=== PATIENT | female | born 1995 | race Caucasian/White ===

== ENCOUNTER 2021-01-07 15:12 | Outpatient (REF) | payer BC, SELFPAY ==
--- NOTE | 2021-01-07 14:30 | PAPFT_PTH ---
PATIENT: Elmira Gonzalez LOC: [facility] U#:[id number] AGE/SX: 25/F ROOM: RE01/07/[address]: Sowmya Lawrence APRN : 1995 BED: DIS: 01/07/2021 SPEC #: [id number] RECD: 01/07/21 18:10 STATUS: MILAGRO ANDRES #: [id number] GIULIA: 01/07/21 14:[address]: Sowmya Lawrence [facility]PT: [facility] Cytology RECD BY: Kristina Stone Tissues: 1 - CX/ENDOCX FOR PAP SMEARS Procedures: PAP THIN PREP/UVM Screening Comments: [id number]
== END 2021-01-07 15:13 | disposition home or self-care (01) ==
LOC: LBN 15:12
PROVIDERS: PCP Nurse Practitioner; Visit Provider Nurse Practitioner
DX: Z12.4 Encounter for screening for malignant neoplasm of cervix (principal)
CPT/HCPCS: 88142

== ENCOUNTER 2022-06-20 17:28 | Emergency (ER) | payer BC, SELFPAY ==
[2022-06-20 17:32] VITALS: BP 155/91; PULSE 129; RESP 18; TEMP 37.1; O2SAT 97
--- NOTE | 2022-06-20 17:56 | W.ED.GENAD ---
Discharge Plan Disposition Patient Disposition: HOME Discharge Details Clinical Impression: Otitis media, Acute allergic conjunctivitis Primary Care Provider: Sowmya Lawrence ED Provider: Raffy Mccallum Home Meds and New Rx's Prescriptions: New amoxicillin-pot clavulanate [Augmentin] 500-125 mg tablet 1 tab PO Q8H Qty: 20 0RF No Action multivitamin [Daily Vitamin] 1 EACH tablet 1 ea PO DAILY Nexplanon 68 MG implant 68 mg SQ ONCE Qty: 1 0RF norgestimate-ethinyl estradiol [Estarylla] 0.25-35 mg-mcg tablet 1 tab PO DAILY Label Comments: TAKE ONE TABLET BY MOUTH EVERY DAY Discharge Instructions Instructions: Ear Infection (ED), Conjunctivitis (ED) Additional Instructions: Please take Tylenol 1 g every 6 hours for the pain. You can also take ibuprofen 600 mg every 6 hours for the pain. Please take the antibiotic as prescribed. Please follow your primary care doctor next week Please use the erythromycin ointment 3 times a day until the tube is completed Medical Decision Making Medical Records Medical records narrative: Patient with bilateral otitis media. No perforation. Bilateral conjunctivitis likely viral. Patient will be discharged with instruction to take Tylenol Motrin for the pain. She will be sent home with a Augmentin prescription. She has been using cool compresses for her eyes and this does not seem to work. She will be given some erythromycin ointment in the emergency department. HPI General Date/Time Provider Initiated Documentation: 06/20/22 17:55. HPI Narrative: 26-year-old presents to the emergency room for evaluation of bilateral red eye and eye drainage associated with bilateral ear pain. The right ear hurts more than the left. Not associated with any change in hearing acuity. Patient denies any fevers or chills. She has been taking Tylenol for the pain. Her last dose of Tylenol was this morning. The pain in her ear started on Wednesday. Hence this has been going on for 2 days. No visual changes. No sick contacts. No seasonal allergies. Has not been taking any decongestants. States that the last time he had the infection was many years ago. No nausea no vomiting The ear pain is described as an ache. Moderate to severe intensity. No relieving factors. No aggravating factors. Related Data Home Medications Medication Instructions Recorded Confirmed multivitamin (Daily Vitamin tablet) 1 ea PO DAILY 06/07/15 06/20/22 etonogestrel 68 mg subdermal 68 mg SQ ONCE #1 implant 11/16/17 06/20/22 implant (Nexplanon) amoxicillin 500 mg-potassium 1 tab PO Q8H #20 tabs 06/20/22 clavulanate 125 mg tablet (Augmentin) norgestimate 0.25 mg-ethinyl 1 tab PO DAILY 06/20/22 06/20/22 estradiol 35 mcg tablet (Estarylla) Previous Rx's Medication Instructions Recorded etonogestrel 68 mg subdermal 68 mg SQ ONCE #1 implant 11/16/17 implant (Nexplanon) amoxicillin 500 mg-potassium 1 tab PO Q8H #20 tabs 06/20/22 clavulanate 125 mg tablet (Augmentin) Allergies Allergy/AdvReac Type Severity Reaction Status Date / Time No Known Allergies Allergy Verified 06/20/22 17:36 General Stated Complaint: EarProblem RAEGAN: 4 Review of Systems Narrative: Constitutional negative for fever, chills. Negative for malaise and fatigue. HEENT please see HPI. Cardiovascular no palpitation Respiratory no cough no shortness of breath GI no nausea no vomiting no abdominal pain. negative MSK no myalgias no arthralgias Neuro mild headache otherwise negative Skin no lesions Lymph negative PFSH All Active Problems (Updated 06/20/22 @ 18:07 by Raffy Mccallum MD) Otitis media (Acute) Acute allergic conjunctivitis (Acute) Presence of subdermal contraceptive implant (Acute 01/20/21) Obesity (Chronic) Medical History (Updated 06/20/22 @ 18:07 by Raffy Mccallum MD) BMI 40.0-44.9, adult Family History Father Cancer Grandmother Cancer Social History (Updated 01/07/21 @ 14:15 by Angelica Matias RN) Smoking/Tobacco Use Status: Never Smoking risk assessment performed?: Yes Alcohol Intake: never Drug use: Never Substance use type: does not use Household members: family Housing: house Number of Children: 0 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 Sexually active: No Do you think of yourself as: straight/heterosexual Current gender identity: female What is your relationship status?: never How often do you talk on the phone with friends or family?: never How often do you get together with friends or relatives?: never How often do you attend rastafari or catholic services?: decline to answer Do you belong to any clubs or organized social groups?: decline to answer Panel score (0-1 are the most socially isolated patients): 0 What type of physical activity do you participate in: walking Duration: 30-45 minutes/day Frequency: 5-6 times per week Special barry needs: No Seatbelt use: always Do you feel safe at home: Yes Do you feel safe in your relationship?: Yes Female Reproductive History Menstrual control method: implanted History History 0 Para Hx # Term Pregnancies Multiple births Hx # Pregnancies Ectopic pregnancies AB induced Hx Number of Living Children AB spontaneous Exam Narrative Exam Narrative: Awake alert [place] x3 mild distress. Pleasant cooperative. High BMI. No cephalic atraumatic PERRLA EOMI, bilateral injected eyes. Oropharynx normal. No cervical lymphadenopathy. Bilateral TMs with erythema and loss of anatomic landmarks. Right greater than left. Ears and tympanic canals normal Chest is clear to auscultation bilaterally. Heart is regular rate. Skin negative no rashes Neuro grossly intact Course Vital Signs Vital signs: Vital Signs Temperature 37.1 C 06/20/22 17:32 Pulse 129 H 06/20/22 17:32 Respiratory Rate 18 06/20/22 17:32 Blood Pressure 155/91 H 06/20/22 17:32 Pulse Oximetry 97 06/20/22 17:32 Temperature 37.1 C 06/20/22 17:32 Temperature Source Temporal Artery Scan 06/20/22 17:32 Pulse 129 H 06/20/22 17:32 Respiratory Rate 18 06/20/22 17:32 Respiratory Effort 06/20/22 17:36 Blood Pressure 155/91 H 06/20/22 17:32 Blood Pressure Position Sitting 06/20/22 17:32 Pulse Oximetry 97 06/20/22 17:32 Oxygen Delivery Method Room Air 06/20/22 17:32 Oxygen Flow Rate 0 06/20/22 17:32 Pain Level 7 06/20/22 17:32
[2022-06-20] MEDS: Ibuprofen 600 MG TAB PO (18:17)
[2022-06-20] MEDS: Erythromycin Ophth Oint 3.5 GM TUBE OU (18:17)
[2022-06-20] MEDS: Amoxicillin 875/Clav. 125 TAB PO (18:17)
--- NOTE | 2022-06-21 09:34 | NUR.NOTE ---
Nursing Note:Pt called to get Script changed from [facility] to [facility] because [facility] isn't open today. Verified change with provider and called to new pharmacy.
== END 2022-06-20 18:27 | disposition home or self-care (01) ==
PROVIDERS: Emergency Provider Emergency Medicine; PCP Nurse Practitioner
DX: H10.13 Acute atopic conjunctivitis, bilateral (principal); H66.93 Otitis media, unspecified, bilateral
CPT/HCPCS: 99283; 99284

== ENCOUNTER 2022-11-19 18:50 | Emergency (ER) | payer BC, SELFPAY ==
[2022-11-19 19:18] VITALS: BP 139/94; PULSE 96; RESP 16; TEMP 36.8; O2SAT 98
[2022-11-19 20:16] LABS: Abs Immature Grans 0.02 10^3/uL (0.0-0.06); Absolute Basophil Count 0.05 10^3/uL (0.0-0.2); Absolute Eosinophil Count 0.08 10^3/uL (0.0-0.7); Absolute Lymphocyte Count 2.16 10^3/uL (1.2-3.4); Absolute Monocyte Count 0.64 10^3/uL (0.1-0.8); Absolute Neutrophil Count 5.84 10^3/uL (1.2-6.7); Basophils % 0.6; Eosinophils % 0.9; HCT 47.4 % (36.0-46.0); HGB 15.9 g/dL (11.2-15.7); Immature Grans % 0.2; Lymphocytes % 24.6; MCH 28.9 pg (27.0-33.0); MCHC 33.5 % (32.0-36.0); MCV 86 fL (80-95); MPV 11.3 fL (8.0-11.0); Monocytes % 7.3; Neutrophils % 66.4; Platelet Count 193 10^3/uL (130-400); RBC 5.51 10^6/uL (3.93-5.22); RDW-SD 40.6 fL; WBC 8.79 10^3/uL (4.4-10.8)
[2022-11-19 20:19] LABS: Bilirubin Small (Negative); Blood Negative (Negative); Clarity Clear (Clear); Glucose Negative (Negative); Ketones 40 mg/dL (Negative); Leukocyte Esterase Negative (Negative); Nitrite Negative (Negative); Specific Gravity >= 1.030 (1.005-1.025); Urobilinogen 0.2 EU/dL (Up TO 0.2)
[2022-11-19 20:25] LABS: Bacteria Moderate HPF (Negative); C & S Indicated? Yes; Crystals Negative HPF (Negative); Epithelial Cells Moderate HPF (Negative); Mucus Moderate (Negative); RBC 0-2 HPF (0-2)
--- NOTE | 2022-11-19 20:30 | RT.EKG_ITS ---
APPROVED REPORT Exam: Resting ECG Reason for Exam: Hypokalemia Patient Location: E HR:84 bpm ECG Measurements Heart Rate 84 AXIS CO 164 P 35 QRSd 103 QRS 48 QT 394 T 14 QTc 466 Conclusion Sinus rhythm...normal P axis, V-rate 60- 99. Sinus. Normal axis. No STEMI. I have reviewed and interpreted ECG and agree with software generated interpretation.
[2022-11-19 20:31] LABS: ALT 24 U/L (14-59); AST 29 U/L (15-37); Albumin 4.2 g/dL (3.4-5.0); Alkaline Phosphatase 101 U/L (46-116); Anion Gap 12.4 mmol/L (3-11); BUN 13 mg/dL (7-18); Bilirubin, Total 0.9 mg/dL (0.2-1.0); CO2 23.6 mmol/L (21.0-32.0); CREATININE 0.8 mg/dL (0.55-1.02); Calcium 8.8 mg/dL (8.5-10.1); Chloride 101 mmol/L (98-107); Glucose 80 mg/dL (74-106); Lipase 92 U/L (73-393); Potassium 2.8 mmol/L (3.5-5.1); Sodium 137 mmol/L (136-145); Total Protein 8.6 g/dL (6.4-8.2)
--- NOTE | 2022-11-19 20:35 | ED.GENADUL_ITS ---
Discharge Plan Disposition Patient Disposition: Home Condition: Stable Discharge Details Clinical Impression: Abdominal pain, Hypokalemia Primary Care Provider: Sowmya Lawrence ED Provider: Marcos Barrera Home Meds and New Rx's Prescriptions: Continued multivitamin [Daily Vitamin] 1 EACH tablet 1 ea PO DAILY Nexplanon 68 MG implant 68 mg SQ ONCE Qty: 1 0RF norgestimate-ethinyl estradiol [Estarylla] 0.25-35 mg-mcg tablet 1 tab PO DAILY Label Comments: TAKE ONE TABLET BY MOUTH EVERY DAY Discharge Instructions Instructions: Abdominal Pain (ED), Hypokalemia (ED) Additional Instructions: Clear liquid diet, advance as tolerated. Zofran as directed for nausea. Please watch for new or worsening symptoms and return immediately to the ER. Otherwise I am setting you up for an ultrasound tomorrow, the radiology department should be in touch with you to set this up. After the ultrasound you will return to the ER for ultrasound results and reevaluation. As we discussed if your symptoms worsen, CT imaging may be indicated. Medical Decision Making 26-year-old female denies significant past medical history, does report positive GI sick contacts recently, presents for what she thought was a GI bug over the past 4 days, fever 4 days ago, has resolved. She reports nausea and diarrhea associated some abdominal pain. Patient denies any pain at this very moment. Reports her nausea is a 3 out of 10. Clinically she appears well, nontoxic, has no right lower quadrant pain whatsoever. Plan to obtain IV access, give IV fluid, Zofran, obtain routine screening laboratory values and reassess. Laboratory values do not reveal any evidence of leukocytosis or elevated LFTs. Incidentally potassium is 2.8. Likely secondary to her overall decrease of p.o. intake over the past 4 days. Will obtain EKG and provide p.o. and IV potassium. Given her abdominal examination, benign laboratory values, I do not see any indication for emergent CT imaging. Discussed signs and symptoms of appendicitis and we discussed the importance of returning to the ER immediately for reevaluation. Otherwise I will set her up for an outpatient ultrasound tomorrow of her gallbladder. She was able to tolerate p.o. intake here in the ER without any difficulty and reports that her nausea resolved with Zofran. We will provide a take-home pack of Zofran. Standard discharge and return precautions were provided. Patient understands, is agreeable to this plan, and has no additional questions or concerns upon discharge. This documentation was generated using [employer] dictation system, please disregard any oddities of phrase or misspellings. Medical Records Medical records reviewed: Yes I reviewed the patient's medical records. Lab Data Lab results reviewed: Yes I reviewed the patient's lab results. Labs: 11/19/22 20:00 Urine - Reflex from Ua Urine Culture - Pending Laboratory Tests Range/Units 11/19/22 11/19/22 11/19/22 20:00 20:08 20:08 WBC (4.4-10.8) 10^3/uL 8.79 RBC (3.93-5.22) 10^6/uL 5.51 H Hgb (11.2-15.7) g/dL 15.9 H Hct (36.0-46.0) % 47.4 H MCV (80-95) fL 86 MCH (27.0-33.0) pg 28.9 MCHC (32.0-36.0) % 33.5 RDW (11.7-14.6) % 13.0 Plt Count (130-400) 10^3/uL 193 MPV (8.0-11.0) fL 11.3 H Immature Gran % 0.2 Neutrophils % 66.4 Lymphocytes % 24.6 Monocytes % 7.3 Eosinophils % 0.9 Basophils % 0.6 Nucleated RBC % (0.0-0.3) % 0.0 Absolute Neutrophils (1.2-6.7) 10^3/uL 5.84 Absolute Lymphocytes (1.2-3.4) 10^3/uL 2.16 Absolute Monocytes (0.1-0.8) 10^3/uL 0.64 Absolute Eosinophils (0.0-0.7) 10^3/uL 0.08 Absolute Basophils (0.0-0.2) 10^3/uL 0.05 Sodium (136-145) mmol/L 137 Potassium (3.5-5.1) mmol/L 2.8 L* Chloride (98-107) mmol/L 101 Carbon Dioxide (21.0-32.0) mmol/L 23.6 Anion Gap (3-11) mmol/L 12.4 H BUN (7-18) mg/dL 13 Creatinine (0.55-1.02) mg/dL 0.8 Est GFR (CKD-EPI 2020) (mL/min/1.73m2) 103.50 Glucose (74-106) mg/dL 80 Calcium (8.5-10.1) mg/dL 8.8 Total Bilirubin (0.2-1.0) mg/dL 0.9 AST (15-37) U/L 29 ALT (14-59) U/L 24 Alkaline Phosphatase (46-116) U/L 101 Total Protein (6.4-8.2) g/dL 8.6 H Albumin (3.4-5.0) g/dL 4.2 Lipase (73-393) U/L 92 Urine Color (Yellow) Yellow Urine Clarity (Clear) Clear Urine pH (5-8) 6.0 Ur Specific [place] (1.005-1.025) >= 1.030 H Urine Protein (Negative) mg/dL Trace H Urine Ketones (Negative) mg/dL 40 H Urine Blood (Negative) Negative Urine Nitrite (Negative) Negative Urine Bilirubin (Negative) Small H Urine Urobilinogen (Up TO 0.2) EU/dL 0.2 Ur Leukocyte Esterase (Negative) Negative Urine RBC (0-2) HPF 0-2 Urine WBC (0-5) HPF 3-5 Ur Epithelial Cells (Negative) HPF Moderate Urine Crystals (Negative) HPF Negative Urine Bacteria (Negative) HPF Moderate Urine Mucus (Negative) Moderate Ur Culture Indicated? Yes Urine Glucose (Negative) mg/dL Negative ECG Data Attestation: I personally reviewed and interpreted this ECG (s) as follows: Interpretation: Sinus rhythm, ventricular of 84, no STEMI, no signs of hypokalemia HPI General Mode of arrival: ambulatory . Date/Time Provider Initiated Documentation: 11/19/22 19:25 . Limitations to Documentation: no limitations . Information obtained by: patient . HPI Narrative: This is a 26-year-old female, past medical history of obesity, presents to the ER today for what she described as a stomach bug that began 4 days ago associated with some nausea, reports fever 4 days ago of 100.0, mild diarrhea that is improving with Pepto-Bismol, and some abdominal discomfort. Patient states overall she feels like her symptoms are improving and she went to work today. At work today she felt like she overdid it, felt like her nausea got worse, and her coworkers recommended going to urgent care for nausea medication. At urgent care they sent her to the ER for further evaluation of potential cholecystitis and or appendicitis. She denies recent trauma, chest pain, shortness of breath, vaginal bleeding or discharge, dysuria, hematuria, blood in her stool. Patient denies previous abdominal surgeries. Related Data Home Medications Medication Instructions Recorded Confirmed multivitamin (Daily Vitamin tablet) 1 ea PO DAILY 06/07/15 11/19/22 etonogestrel 68 mg subdermal 68 mg SQ ONCE #1 implant 11/16/17 11/19/22 implant (Nexplanon) norgestimate 0.25 mg-ethinyl 1 tab PO DAILY 06/20/22 11/19/22 estradiol 35 mcg tablet (Estarylla) Previous Rx's Medication Instructions Recorded etonogestrel 68 mg subdermal 68 mg SQ ONCE #1 implant 11/16/17 implant (Nexplanon) Allergies Allergy/AdvReac Type Severity Reaction Status Date / Time No Known Allergies Allergy Verified 11/19/22 19:24 General Stated Complaint: Abd Prob RAEGAN: 3 Review of Systems Constitutional Constitutional: Reports fever(s) (4 days ago) ENT Ears, Nose, Mouth, and Throat: Denies sore throat Cardiovascular Cardiovascular: Denies chest pain and Denies dyspnea Respiratory Respiratory: Denies cough and Denies dyspnea Gastrointestinal Gastrointestinal: Reports abdominal pain, Denies hematochezia, Denies constipation, Reports diarrhea, Denies nausea and Reports vomiting Genitourinary Genitourinary: Denies dysuria and Denies vaginal discharge Musculoskeletal Musculoskeletal: Denies back pain Integumentary/Breasts Skin/Breast: Denies rash PFSH All Active Problems (Updated 11/19/22 @ 22:01 by LAMINE Angulo) Abdominal pain (Acute) Hypokalemia (Acute) Presence of subdermal contraceptive implant (Acute 01/20/21) Obesity (Chronic) Medical History BMI 40.0-44.9, adult Family History Father Cancer Grandmother Cancer Social History Smoking/Tobacco Use Status: Never Smoking risk assessment performed?: Yes Alcohol Intake: never Drug use: Never Substance use type: does not use Household members: family Housing: house Number of Children: 0 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 Sexually active: No Do you think of yourself as: straight/heterosexual Current gender identity: female What is your relationship status?: never How often do you talk on the phone with friends or family?: never How often do you get together with friends or relatives?: never How often do you attend anglican or taoism services?: decline to answer Do you belong to any clubs or organized social groups?: decline to answer Panel score (0-1 are the most socially isolated patients): 0 What type of physical activity do you participate in: walking Duration: 30-45 minutes/day Frequency: 5-6 times per week Special barry needs: No Seatbelt use: always Do you feel safe at home: Yes Do you feel safe in your relationship?: Yes Female Reproductive History Menstrual control method: implanted History History 0 Para Hx # Term Pregnancies Multiple births Hx # Pregnancies Ectopic pregnancies AB induced Hx Number of Living Children AB spontaneous Exam Const General: cooperative, healthy appearing, comfortable and no acute distress Orientation: alert and awake HENMT Head: normal to inspection, normocephalic and atraumatic Face and sinus: normal facial exam Mouth: moist mucous membranes Eyes Conjunctivae: conjunctivae normal Neck Neck: normal visual inspection, full ROM, no meningeal signs, trachea midline and supple Resp Effort & Inspection: normal respiratory effort and able to speak in complete sentences Auscultation: clear to auscultation bilaterally Cardio Rate: regular rate Rhythm: regular rhythm GI Inspection: obesity Palpation: soft, not firm, no guarding and tender in the epigastrum and in the RUQ; not at McBurney's point and Lowe's sign negative Auscultation: normal bowel sounds Back/Spine/Pelvis Back: no CVA tenderness and No back tenderness Skin General skin exam: no rashes or lesions noted Neuro General: patient alert, patient awake, moves all extremities and no focal motor deficits Sensory Exam: no sensory deficits noted Psych Appearance: grossly normal Mental Status: mental status grossly normal Course Vital Signs Vital signs: Vital Signs Temperature 36.8 C 11/19/22 19:18 Pulse 96 H 11/19/22 19:18 Respiratory Rate 16 11/19/22 19:18 Blood Pressure 139/94 H 11/19/22 19:18 Pulse Oximetry 98 11/19/22 19:18 Temperature 36.8 C 11/19/22 19:18 Temperature Source Temporal Artery Scan 11/19/22 19:18 Pulse 96 H 11/19/22 19:18 Respiratory Rate 16 11/19/22 19:18 Respiratory Effort 11/19/22 19:18 Blood Pressure 139/94 H 11/19/22 19:18 Blood Pressure Position Sitting 11/19/22 19:18 Pulse Oximetry 98 11/19/22 19:18 Oxygen Delivery Method Room Air 11/19/22 19:18 Oxygen Flow Rate 0 11/19/22 19:18 Pain Level 5 11/19/22 20:15 Lab/Test Results Lab/Test Results: 11/19/22 20:00 Urine - Reflex from Ua Urine Culture - Pending Laboratory Tests Range/Units 11/19/22 11/19/22 11/19/22 20:00 20:08 20:08 WBC (4.4-10.8) 10^3/uL 8.79 RBC (3.93-5.22) 10^6/uL 5.51 H Hgb (11.2-15.7) g/dL 15.9 H Hct (36.0-46.0) % 47.4 H MCV (80-95) fL 86 MCH (27.0-33.0) pg 28.9 MCHC (32.0-36.0) % 33.5 RDW (11.7-14.6) % 13.0 Plt Count (130-400) 10^3/uL 193 MPV (8.0-11.0) fL 11.3 H Immature Gran % 0.2 Neutrophils % 66.4 Lymphocytes % 24.6 Monocytes % 7.3 Eosinophils % 0.9 Basophils % 0.6 Nucleated RBC % (0.0-0.3) % 0.0 Absolute Neutrophils (1.2-6.7) 10^3/uL 5.84 Absolute Lymphocytes (1.2-3.4) 10^3/uL 2.16 Absolute Monocytes (0.1-0.8) 10^3/uL 0.64 Absolute Eosinophils (0.0-0.7) 10^3/uL 0.08 Absolute Basophils (0.0-0.2) 10^3/uL 0.05 Sodium (136-145) mmol/L 137 Potassium (3.5-5.1) mmol/L 2.8 L* Chloride (98-107) mmol/L 101 Carbon Dioxide (21.0-32.0) mmol/L 23.6 Anion Gap (3-11) mmol/L 12.4 H BUN (7-18) mg/dL 13 Creatinine (0.55-1.02) mg/dL 0.8 Est GFR (CKD-EPI 2020) (mL/min/1.73m2) 103.50 Glucose (74-106) mg/dL 80 Calcium (8.5-10.1) mg/dL 8.8 Total Bilirubin (0.2-1.0) mg/dL 0.9 AST (15-37) U/L 29 ALT (14-59) U/L 24 Alkaline Phosphatase (46-116) U/L 101 Total Protein (6.4-8.2) g/dL 8.6 H Albumin (3.4-5.0) g/dL 4.2 Lipase (73-393) U/L 92 Urine Color (Yellow) Yellow Urine Clarity (Clear) Clear Urine pH (5-8) 6.0 Ur Specific [place] (1.005-1.025) >= 1.030 H Urine Protein (Negative) mg/dL Trace H Urine Ketones (Negative) mg/dL 40 H Urine Blood (Negative) Negative Urine Nitrite (Negative) Negative Urine Bilirubin (Negative) Small H Urine Urobilinogen (Up TO 0.2) EU/dL 0.2 Ur Leukocyte Esterase (Negative) Negative Urine RBC (0-2) HPF 0-2 Urine WBC (0-5) HPF 3-5 Ur Epithelial Cells (Negative) HPF Moderate Urine Crystals (Negative) HPF Negative Urine Bacteria (Negative) HPF Moderate Urine Mucus (Negative) Moderate Ur Culture Indicated? Yes Urine Glucose (Negative) mg/dL Negative
[2022-11-19] MEDS: Potassium Chloride 20 MEQ TABCR 40 MEQ PO (21:08)
[2022-11-19] MEDS: Ondansetron 4 MG/2 ML VIAL IVP (21:11)
[2022-11-19] MEDS: POTASSIUM CHLORIDE 10 MEQ/100 ML BAG 100 MEQ IVPB (21:12)
[2022-11-19 21:32] VITALS: BP 137/89; PULSE 90; RESP 16; O2SAT 97
--- NOTE | 2022-11-19 21:37 | NUR.NOTE ---
Ultrasound requisition faxed to [facility], patient given abd ultrasound instruction sheet. Will f/u in ED.Nursing Note:
--- NOTE | 2022-11-19 21:39 | NUR.NOTE ---
Referral faxed to [facility] General Surgery to f/u within a week for ascites.Nursing Note:
--- NOTE | 2022-11-19 22:08 | NUR.NOTE ---
Report given to Rhiannon GARRISON Nursing Note:
[2022-11-19 22:39] VITALS: BP 124/94; PULSE 95; RESP 18; TEMP 36.8; O2SAT 99
[2022-11-19 22:50] VITALS: BP 124/94; PULSE 95; RESP 18; TEMP 36.8; O2SAT 99
[2022-11-19] MEDS: Ondansetron O.D.T. 4 MG TABEF, 3 TABS/BTL PO (23:00)
== END 2022-11-19 22:45 | disposition home or self-care (01) ==
PROVIDERS: Emergency Provider Physician Assistant; PCP Nurse Practitioner
DX: E87.6 Hypokalemia (principal); R10.9 Unspecified abdominal pain; R19.7 Diarrhea, unspecified; R10.11 Right upper quadrant pain
CPT/HCPCS: 36415; 80053; 83690; 93005; 96365; 96375; 99284; 81003; 81015; 85025; 87086; 93010; J2405; J3480

== ENCOUNTER 2022-11-20 11:25 | Emergency (ER) | payer BC, SELFPAY ==
[2022-11-20 11:33] VITALS: BP 127/87; PULSE 99; RESP 18; TEMP 36.6; O2SAT 98
--- NOTE | 2022-11-20 11:38 | ED.GENADUL_ITS ---
Discharge Plan Disposition Patient Disposition: Home Condition: Stable Discharge Details Clinical Impression: Cholelithiasis Primary Care Provider: Sowmya Lawrence ED Provider: Marcos Barrera Home Meds and New Rx's Prescriptions: New ondansetron 4 mg tablet,disintegrating 4 mg PO TID PRNQty: 10 0RF Continued multivitamin [Daily Vitamin] 1 EACH tablet 1 ea PO DAILY Nexplanon 68 MG implant 68 mg SQ ONCE Qty: 1 0RF norgestimate-ethinyl estradiol [Estarylla] 0.25-35 mg-mcg tablet 1 tab PO DAILY Label Comments: TAKE ONE TABLET BY MOUTH EVERY DAY Discharge Instructions Instructions: Biliary Colic (ED), Gallstones (ED) Additional Instructions: Avoid fatty, greasy, fried foods. Zofran as directed for nausea. Please watch for new or worsening symptoms and return to the ER for any concerns. Lastly, I have provided you a referral to our [facility], please contact their office later today to discuss your ER visit and need for outpatient reevaluation. Referrals: Jeremy Nascimento MD [ [facility] STAFF PHYSICIAN] - Medical Decision Making 26-year-old female was seen in the ER last night for 4-day history of abdominal pain, nausea, diarrhea which is overall improving, seen at the urgent care and sent to the ER for further evaluation. CBC, CMP, lipase all unremarkable. No indication for emergent CT imaging. Set up for outpatient ultrasound today. Patient reports no pain whatsoever. Reports her nausea has improved with Zofran. Denies fever. Reports she was able to eat breakfast today without difficulty. Ultrasound reveals cholelithiasis without evidence of acute cholecystitis. Abdomen is soft, nontender, examination not consistent with surgical abdomen. Extremely low suspicion for acute appendicitis, I do not see any clear indication to obtain CT imaging or repeat laboratory values at this time. We will provide prescription for Zofran and give referral to surgical Associates. We had a long discussion regarding cholelithiasis, dietary changes, signs and symptoms to watch for and return immediately to the ER. Standard discharge and return precautions were provided. Patient understands, is agreeable to this plan, and has no additional questions or concerns upon discharge. This documentation was generated using Spontaneouslyation system, please disregard any oddities of phrase or misspellings. Medical Records Medical records reviewed: Yes I reviewed the patient's medical records. Imaging Data Radiologic Study: Attestation: I personally reviewed and interpreted this imaging study as follows: Imaging: Ultrasound Radiologist's impression: Exam(s) US ABDOMEN LIMITED EXAM: US ABDOMEN LIMITED CLINICAL HISTORY: PAIN TECHNIQUE: Ultrasound abdomen performed using standard protocol. COMPARISON: No exams were available for comparison FINDINGS: LIVER: Normal size and echogenicity. No focal liver lesions are seen.. GALLBLADDER: Mobile cholelithiasis. No evidence of wall thickening. No pericholecystic fluid identified. PENA'S SIGN: Negative. BILIARY SYSTEM: No intrahepatic or extrahepatic biliary ductal dilation. KIDNEYS: Kidneys are symmetric in size. No evidence of renal calculi. No evidence of hydronephrosis. No renal mass or cyst identified. PANCREAS: Normal where visualized. SPLEEN: Not enlarged. ABDOMINAL AORTA AND IVC: Visualized portions normal caliber. ASCITES: None seen. IMPRESSION: Cholelithiasis. No evidence of acute cholecystitis or biliary dilatation. HPI General Mode of arrival: ambulatory . Date/Time Provider Initiated Documentation: 11/20/22 11:38 . Limitations to Documentation: no limitations . Information obtained by: patient . HPI Narrative: 26-year-old female seen in the ER last night for evaluation of abdominal pain, laboratory values were unremarkable, set for an outpatient ultrasound of her upper quadrant today, presents now for the results. Patient was personally evaluated by me yesterday as well as today. She reports that her nausea is improving with Zofran and she denies any pain whatsoever. Denies fever, chest pain, shortness of breath, back pain, change in bowel or bladder habits. She reports overall feeling improvement when compared to yesterday. Related Data Home Medications Medication Instructions Recorded Confirmed multivitamin (Daily Vitamin tablet) 1 ea PO DAILY 06/07/15 11/20/22 etonogestrel 68 mg subdermal 68 mg SQ ONCE #1 implant 11/16/17 11/20/22 implant (Nexplanon) norgestimate 0.25 mg-ethinyl 1 tab PO DAILY 06/20/22 11/20/22 estradiol 35 mcg tablet (Estarylla) ondansetron 4 mg disintegrating 4 mg PO TID PRN #10 tabs 11/20/22 tablet Previous Rx's Medication Instructions Recorded etonogestrel 68 mg subdermal 68 mg SQ ONCE #1 implant 11/16/17 implant (Nexplanon) ondansetron 4 mg disintegrating 4 mg PO TID PRN #10 tabs 11/20/22 tablet Allergies Allergy/AdvReac Type Severity Reaction Status Date / Time No Known Allergies Allergy Verified 11/19/22 19:24 General Stated Complaint: Recheck RAEGAN: 5 Review of Systems Constitutional Constitutional: Denies fever(s) Cardiovascular Cardiovascular: Denies chest pain and Denies dyspnea Respiratory Respiratory: Denies cough and Denies dyspnea Gastrointestinal Gastrointestinal: Denies abdominal pain, Reports nausea and Denies vomiting Musculoskeletal Musculoskeletal: Denies back pain PFSH All Active Problems Abdominal pain (Acute) Hypokalemia (Acute) Cholelithiasis (Acute) Presence of subdermal contraceptive implant (Acute 01/20/21) Obesity (Chronic) Medical History BMI 40.0-44.9, adult Family History Father Cancer Grandmother Cancer Social History Smoking/Tobacco Use Status: Never Smoking risk assessment performed?: Yes Alcohol Intake: never Drug use: Never Substance use type: does not use Household members: family Housing: house Number of Children: 0 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 Sexually active: No Do you think of yourself as: straight/heterosexual Current gender identity: female What is your relationship status?: never How often do you talk on the phone with friends or family?: never How often do you get together with friends or relatives?: never How often do you attend muslim or denominational services?: decline to answer Do you belong to any clubs or organized social groups?: decline to answer Panel score (0-1 are the most socially isolated patients): 0 What type of physical activity do you participate in: walking Duration: 30-45 minutes/day Frequency: 5-6 times per week Special barry needs: No Seatbelt use: always Do you feel safe at home: Yes Do you feel safe in your relationship?: Yes Female Reproductive History Menstrual control method: implanted History History 0 Para Hx # Term Pregnancies Multiple births Hx # Pregnancies Ectopic pregnancies AB induced Hx Number of Living Children AB spontaneous Exam Const General: cooperative, healthy appearing, comfortable and no acute distress Orientation: alert and awake HENMT Head: normal to inspection, normocephalic and atraumatic Eyes Conjunctivae: conjunctivae normal Neck Neck: normal visual inspection, full ROM, no meningeal signs, trachea midline and supple Resp Effort & Inspection: normal respiratory effort and able to speak in complete sentences Auscultation: clear to auscultation bilaterally Cardio Rate: regular rate Rhythm: regular rhythm GI Inspection: obesity Palpation: soft, not firm, no guarding, no pulsatile masses and nontender Auscultation: normal bowel sounds Skin General skin exam: no rashes or lesions noted Neuro General: patient alert, patient awake, moves all extremities and no focal motor deficits Cognition: normal cognition Speech: speech normal Gait: normal gait Sensory Exam: no sensory deficits noted Psych Appearance: grossly normal Mental Status: mental status grossly normal Course Vital Signs Vital signs: Vital Signs Temperature 36.6 C 11/20/22 11:33 Pulse 99 H 11/20/22 11:33 Respiratory Rate 18 11/20/22 11:33 Blood Pressure 127/87 11/20/22 11:33 Pulse Oximetry 98 11/20/22 11:33 Temperature 36.6 C 11/20/22 11:33 Temperature Source Skin 11/20/22 11:33 Pulse 99 H 11/20/22 11:33 Respiratory Rate 18 11/20/22 11:33 Respiratory Effort 11/20/22 11:37 Blood Pressure 127/87 11/20/22 11:33 Blood Pressure Position Sitting 11/20/22 11:33 Pulse Oximetry 98 11/20/22 11:33 Oxygen Delivery Method Room Air 11/20/22 11:33 Oxygen Flow Rate 0 11/20/22 11:33 Pain Level 0 11/20/22 11:33
== END 2022-11-20 12:29 | disposition home or self-care (01) ==
PROVIDERS: Emergency Provider Physician Assistant; PCP Nurse Practitioner
DX: K80.80 Other cholelithiasis without obstruction (principal)
CPT/HCPCS: 99281; 99283

== ENCOUNTER 2022-12-02 08:07 | Day surgery (SDC) | payer BC, SELFPAY ==
--- NOTE | 2022-12-01 20:50 | W.PM.DSUDISC ---
Date of service: 12/02/22 Time of Service: 13:38 Discharge Plan Disposition Patient Disposition: Home Condition: Stable Discharge Details Reason For Visit: Laparoscopic cholecystectomy Attending Provider: Ludwin Romero Primary Care Provider: Sowmya Lawrence Home Meds and New Rx's Prescriptions: New oxycodone 5 mg capsule 5 mg PO Q8H PRNQty: 8 0RF Rx Instructions: Take 1 pill every 6-8 hours as needed for pain Continued potassium gluconate 500 mg (83 mg) tablet 500 mg PO DAILY ondansetron 4 mg tablet,disintegrating 4 mg PO TID PRN (Reason: nausea and vomiting) Qty: 20 3RF multivitamin [Daily Vitamin] 1 EACH tablet 1 ea PO DAILY Nexplanon 68 MG implant 68 mg SQ ONCE Qty: 1 0RF Discharge Instructions Instructions: Laparoscopic Cholecystectomy (DC) Additional Instructions: Alternate taking acetaminophen and ibuprofen every 4 hours for the first three days, and then taper off. Follow directions on bottle for maximum dosing. Activity:: Activity as Tolerated Remove Dressings/Wound Care:: 48 hours Shower/Bathe:: 24 hours Diet:: Low fat Discharge Orders Discharge Orders: Discharge Order (Routine); Ordered 12/02/22 Ordered By: Ludwin Romero DS: Diagnosis Discharge Diagnosis (1) Cholelithiasis: Status: Acute Asessment and Plan: 26yo female s/p laparoscopic cholecystectomy in stable condition. --discharge home when meets criteria --no lifting >10-15 pounds for 6 weeks
--- NOTE | 2022-12-01 20:55 | W.PM.OP ---
Date of service: 12/02/22 Time of Service: 13:25 Operative Note Operative Note DATE OF PROCEDURE: 12/02/22 PRE-OP DIAGNOSIS: Cholelithiasis POST-OP DIAGNOSIS: same PROCEDURE: Laparoscopic cholecystectomy SURGEON: Ludwin Romero RESEARCH AND EVALUATION MANAGER: Naima Ashraf ANESTHESIA TYPE: General LMA/ETT Refer to Anesthesia Record ESTIMATED BLOOD LOSS: 10 PATHOLOGY: other (gallbladder) COMPLICATIONS: None Patient was transported to: PACU Patient's condition: stable Indications: Cholelithiasis Findings: Mildly inflamed gallbladder Procedure Description: The patient was seen and identified by name and birthdate in the preoperative holding area. She was brought into the operating room and positioned supine on the operating room table. Sequential compression devices were applied to the lower extremities. General anesthesia was induced and the patient was intubated. A time out was called and participated in by the entire OR staff. We reviewed that antibiotics had been given within an hour of the patient coming to the operating room. Once we were in agreement, we proceeded. The patient was prepped and draped in standard fashion. The skin and subcutaneous tissues in the supraumbilical position were infiltrated with local anesthetic. The skin was divided and we attempted to gain access to the peritoneal cavity using Pilar technique.. However, it was difficult to safely elevate the peritoneum for entry. Instead, access was gained by using a 5mm camera within an Optiview trocar at the subcostal left mid-axillary line at Caraballo's point. The skin was infiltrated with anesthetic, divided, and elevated. Each abdominal wall layer was visible on entering the abdomen, and pneumoperitoneum was established. The 12mm trocar was safely placed in the supraumbiliical position under direct vision. We then placed our supxiphoid and two right subcostal 5mm trocars. The patient was positioned in reverse Trendelenburg with right side up. The gallbladder was easily visible. Mild omental adhesions were taken down. The gallbladder was elevated cephalad towards the right shoulder. The infindibulum was retracted inferiorly and laterally, and the peritoneum was opened over Calot's triangle using blunt dissection with a [place] dissector, and judicious hook cautery. The cystic duct was clearly visualized going into the gallbladder. A separate structure within Calot's triangle was thought to be the cystic artery. The cystic duct was clipped with 3 clips down and 1 up, and was divided. Upon dividing the duct, we realized that it appeared that an artery was adherent posteriorly to the duct, as a vascular lumen was seen. We continued the dissection and another vessel was found with Calot's triangle and was stapled with 2 down and 1 up, staying close to the gallbladder.. With the duct and artery divided, staying close to the gallbladder, the peritoneum overlying the gallbladder was opened laterally and medially. During manipulation a small rent was made and some bile, but no stones, were spilled. The gallbladder was divided off the liver bed, and placed in an EndoCatch bag. Hemostasis was achieved with cautery. The area was irrigated and aspirated, and no active bleeding was seen. The patient was returned to neutral position. Once again, hemostasis was assured. The 5mm trocars were removed under direct vision ensuring no bleeding, and evacuating the pneumoperitoneum. The 12mm trocar and gallbladder within the EndoCatch were removed from the field. All incisions were irrigated, and infiltrated with the remaining local anesthetic. The fascia of the 12mm access site was closed with a Vicryl figure-of-8 suture while ensuring no intra-abdominal contents were entrapped. All incisions were closed with 4-0 monocryl. They were dressed with steri-strips, 2x2 gauze, and Tegaderm. All counts of sharp and soft objects were correct prior to closure.
[2022-12-02] VITALS (11 sets, daily range): BP systolic 101–135; BP diastolic 55–74; PULSE 72–87; RESP 14–29; TEMP 36.4–37; O2SAT 94–100; BMI 44.5
[2022-12-02] MEDS: Lactated Ringers 1,000 ML 80 ML IV (08:55)
[2022-12-02] MEDS: Normal Saline Flush 10 ML SYR IV ×2 (08:59→09:04)
[2022-12-02] MEDS: Indocyanine green 25 MG VIAL 5 MG IVP (09:02)
[2022-12-02] MEDS: Water,Injection,Sterile 10 ML VIAL IJ (09:03)
[2022-12-02] MEDS: Gabapentin 300 MG CAP 600 MG PO (09:09)
[2022-12-02] MEDS: Acetaminophen 500 MG TAB 1000 MG PO (09:10)
--- NOTE | 2022-12-02 09:38 | ANES.PREOP_ITS ---
General Info Date of Service Date Performed: 12/02/22 Height: 5 ft 6 in Weight: 125.1 kg Body Mass Index (BMI): 44.5 Surgical Procedure: Operation Date: 12/02/22 10:10 Proposed Procedure Side Surgeon p Cholecystectomy Laparoscopic,Possible Open Ludwin Romero MD Meds Allergies and Home Medications Allergies Allergy/AdvReac Type Severity Reaction Status Date / Time No Known Allergies Allergy Verified 12/01/22 10:25 Home Medication Medication Instructions Recorded multivitamin (Daily Vitamin tablet) 1 ea PO DAILY 06/07/15 etonogestrel 68 mg subdermal 68 mg SQ ONCE #1 implant 11/16/17 implant (Nexplanon) ondansetron 4 mg disintegrating 4 mg PO TID PRN nausea and 11/23/22 tablet vomiting #20 tabs potassium gluconate 500 mg (83 mg) 500 mg PO DAILY 11/23/22 tablet Current Visit Medications: Current Medications Generic Name Dose Route Start Last Admin Trade Name Freq PRN Reason Stop Dose Admin Acetaminophen 1,000 mg 12/02/22 06:00 12/02/22 09:10 Acetaminophen 500 Mg Tab PO 12/02/22 16:00 1,000 mg PREOP BRITTANY Administration Gabapentin 600 mg 12/02/22 06:00 12/02/22 09:09 Gabapentin 300 Mg Cap PO 12/02/22 16:00 600 mg PREOP BRITTANY Administration Ringer's Solution 1,000 mls @ 80 mls/hr 12/02/22 06:00 12/02/22 08:55 IV 12/31/22 23:59 80 mls/hr INFUSION BRITTANY Administration Cefazolin Sodium/Dextrose 2 gm in 50 mls @ 100 mls/hr 12/02/22 06:00 Ancef Duplex IVPB 12/02/22 16:00 PREOP BRITTANY IV Miscellaneous Supplies 1 each 12/02/22 06:00 Iv Access IV 12/31/22 23:59 DIRECTED BRITTANY Indocyanine Green 5 mg 12/02/22 08:30 12/02/22 09:02 Indocyanine Green 25 Mg Vial IVP 12/02/22 23:59 5 mg TODAY@0830 BRITTANY Administration Sodium Chloride 0 ml 12/02/22 06:00 12/02/22 09:04 Normal Saline Flush 10 Ml Syr IV 12/31/22 23:59 10 ml PRN PRN Administration Sodium Chloride 0 ml 12/02/22 06:00 Normal Saline 10 Ml Vial IJ 12/31/22 23:59 DIRECTED PRN Sterile Water 0 ml 12/02/22 06:00 12/02/22 09:03 Water,Injection,Sterile 10 Ml Vial IJ 12/31/22 23:59 10 ml DIRECTED PRN Administration PFSH Active Problems Active Problems: Problem Status Onset Code Obesity E66.9 Presence of subdermal contraceptive implant 01/20/21 Z97.5 Abdominal pain R10.9 Hypokalemia E87.6 Cholelithiasis K80.20 Medical History Medical History BMI 40.0-44.9, adult Surgical History Surgical History Hx of wisdom tooth extraction Tobacco Smoking/Tobacco Use Status: Never Passive smoking exposure: No Alcohol Alcohol Intake: never Substance Use Substance use: Never Substance use type: does not use Prental History History 0 Para Hx # Term Pregnancies Multiple births Hx # Pregnancies Ectopic pregnancies AB induced Hx Number of Living Children AB spontaneous Vital Signs and Lab Results Vital Signs Most Recent Vital Signs in EMR: Most Recent Vital Signs Temp Pulse Resp BP Pulse Ox 37 C 87 16 135/72 97 12/02/22 08:39 12/02/22 08:39 12/02/22 08:39 12/02/22 08:39 12/02/22 08:39 Point of Care Results Point of Care Results: POC- Test(urine) Negative 12/02/22 09:08 Lab Results Blood Type / Crossmatch: No Data to Display Complete Blood Count: White Blood Count 8.79 10^3/uL (4.4-10.8) 11/19/22 20:08 Red Blood Count 5.51 10^6/uL (3.93-5.22) H 11/19/22 20:08 Hemoglobin 15.9 g/dL (11.2-15.7) H 11/19/22 20:08 Hematocrit 47.4 % (36.0-46.0) H 11/19/22 20:08 Platelet Count 193 10^3/uL (130-400) 11/19/22 20:08 Complete Metabolic Panel: Sodium 137 mmol/L (136-145) 11/19/22 20:08 Potassium 2.8 mmol/L (3.5-5.1) L* 11/19/22 20:08 Chloride 101 mmol/L (98-107) 11/19/22 20:08 Carbon Dioxide 23.6 mmol/L (21.0-32.0) 11/19/22 20:08 BUN 13 mg/dL (7-18) 11/19/22 20:08 Creatinine 0.8 mg/dL (0.55-1.02) 11/19/22 20:08 Est GFR (CKD-EPI 2020) 103.50 (mL/min/1.73m2) 11/19/22 20:08 Calcium 8.8 mg/dL (8.5-10.1) 11/19/22 20:08 Albumin 4.2 g/dL (3.4-5.0) 11/19/22 20:08 Glucose 80 mg/dL (74-106) 11/19/22 20:08 Liver Function Panel: Alanine Aminotransferase (ALT/SGPT) 24 U/L (14-59) 11/19/22 20: 08 Aspartate Amino Transf (AST/SGOT) 29 U/L (15-37) 11/19/22 20:08 Coagulation Panel: 2 No Data to Display Cardiac Panel: No Data to Display Arterial Blood Gas: No Data to Display Venous Blood Gas: No Data to Display Pancreas Panel: Lipase 92 U/L (73-393) 11/19/22 20:08 Thyroid Panel: No Data to Display Infectious Disease: No Data to Display Blood Cultures: No Data to Display Toxicology Panel: No Data to Display Panel: 2 No Data to Display Anesthesia Assessment and Plan Anesthesia History Personal History: Unknown Anesthesia History Family History: No Family History of Anesthesia Complications Exercise Tolerance Exercise Tolerance: Metabolic Equivalents>4 Pertinent Negatives Pertinent Negatives: No Symptoms of GERD, No Major Cardiovascular Symptoms or Complaints and No Major Pulmonary Symptoms or Complaints Cardiac & Pulmonary Exam Cardiac Exam: Normal S1/S2 Heart Sounds Pulmonary Exam: Clear Bilateral Breath Sounds Implantable Cardiac Device Does patient have a Pacemaker or an ICD?: No Airway Exam Known Difficult Airway: No Mallampati Class: 1 Mouth Opening: Normal (> 3cm) Thyromental Distance: Greater than 3 cm Neck Range of Motion: Full ROM Neck Circumference: Thick Teeth Condition: Normal Dentition ASA Classification ASA Score: ASA 3 Emergency Case?: No NPO Status NPO Status: NPO Clears >2 hours, Solids >8 hours Status Status: Negative HCG Anesthesia Plan Resuscitation Status: Full Code Anesthesia Technique: General Anesthesia Airway Planned: Endotracheal Tube Monitors Used: Standard Monitors
[2022-12-02] MEDS: ceFAZolin 2 GM/50 ML BAG IVPB (11:19)
[2022-12-02] MEDS: Bupivacaine 0.5% Pres-Free W/EPI 30 ML VIAL (11:49)
--- NOTE | 2022-12-02 13:02 | GB_PTH ---
PATIENT: Elmira Gonzalez LOC: [facility] U#:[id number] AGE/SX: 26/F ROOM: RE12/02/[address]: Ludwin Romero : 1995 BED: DIS: 12/02/2022 SPEC #: [id number] RECD: 12/02/22 16:31 STATUS: [place] REQ #: [id number] GIULIA: 12/02/22 13:[address]: Ludwin Romero DEPT: Surgical Specimen RECD BY: Kristina Stone ENTERED: 12/02/22 16:32 SP TYPE: GB KASSI DR: Sowmya Lawrence APRN Tissues: 1 - GALLBLADDER Procedures: GROSS AND MICRO LEVEL 3 Comments: [id number]
[2022-12-02] MEDS: fentaNYL 100 MCG/2 ML VIAL IVP ×2 (13:55→14:04)
[2022-12-02] MEDS: oxyCODONE 5 MG TAB PO (14:56)
--- NOTE | 2022-12-02 15:10 | W.ANESPOSTOP ---
Postoperative Evaluation Date, Time and Location Date Performed: 12/02/22 Time Performed: 15:11 Patient Location: Day Surgery Unit Vital Signs Most Recent Imported Vital Signs: Most Recent Vital Signs Temp Pulse Resp BP Pulse Ox 36.5 C 72 18 112/74 100 12/02/22 14:57 12/02/22 14:57 12/02/22 14:57 12/02/22 14:57 12/02/22 14:57 Pain Score Most Recent Pain Score: Most Recent Pain Score Pain Level 6 12/02/22 14:57 Assessment Mental Status: Awake (Alert & Oriented to Patient Baseline) Airway and Respiratory Function: Patent airway with normal (patient baseline) respiratory exam Cardiovascular Function: Hemodynamically Stable Hydration Status: Adequately Hydrated Nausea & Vomiting: No Nausea or Vomiting Pain: Pain is tolerable per patient Peripheral Nerve Block: Patient did not receive a nerve block
== END 2022-12-02 15:34 | disposition home or self-care (01) ==
PROVIDERS: PCP Nurse Practitioner; Visit Provider Surgery
PROC: 0FT44ZZ Resection of Gallbladder, Percutaneous Endoscopic Approach (ICD-10-PCS; CPT 47562; principal; 2022-12-02 10:00)
DX: K80.10 Calculus of gallbladder with chronic cholecystitis without obstruction (principal); E87.6 Hypokalemia; E66.9 Obesity, unspecified; Z68.41 Body mass index [BMI] 40.0-44.9, adult
CPT/HCPCS: 47562; 81025; 88304; J0690; J1100; J1885; J2250; J2405; J2704; J3010

== ENCOUNTER 2023-08-12 12:01 | Outpatient (CLI) | payer BC, SELFPAY ==
[2023-08-12 13:35] LABS: Abs Immature Grans 0.02 10^3/uL (0.0-0.06); Absolute Basophil Count 0.05 10^3/uL (0.0-0.2); Absolute Eosinophil Count 0.18 10^3/uL (0.0-0.7); Absolute Lymphocyte Count 2.25 10^3/uL (1.2-3.4); Absolute Monocyte Count 0.52 10^3/uL (0.1-0.8); Absolute Neutrophil Count 4.77 10^3/uL (1.2-6.7); Basophils % 0.6; Eosinophils % 2.3; HCT 44.8 % (36.0-46.0); HGB 14.4 g/dL (11.2-15.7); Immature Grans % 0.3; Lymphocytes % 28.9; MCH 28.7 pg (27.0-33.0); MCHC 32.1 % (32.0-36.0); MCV 89 fL (80-95); Monocytes % 6.7; Neutrophils % 61.2; Platelet Count 205 10^3/uL (130-400); RBC 5.02 10^6/uL (3.93-5.22); RDW 13.3 % (11.7-14.6); RDW-SD 43.5 fL; WBC 7.79 10^3/uL (4.4-10.8)
[2023-08-12 13:57] LABS: ALT 25 U/L (14-59); AST 20 U/L (15-37); Albumin 3.8 g/dL (3.4-5.0); Alkaline Phosphatase 104 U/L (46-116); Anion Gap 9.9 mmol/L (3-11); BUN 11 mg/dL (7-18); CO2 25.1 mmol/L (21.0-32.0); CREATININE 0.8 mg/dL (0.55-1.02); Calcium 9.1 mg/dL (8.5-10.1); Chloride 105 mmol/L (98-107); Estimated GFR 102.86 (mL/min/1.73m2); Glucose 85 mg/dL (74-106); Lipase 37 U/L (16-77); Potassium 3.9 mmol/L (3.5-5.1); Sodium 140 mmol/L (136-145)
== END 2023-08-12 12:02 | disposition home or self-care (01) ==
LOC: LBO 12:01
PROVIDERS: PCP Nurse Practitioner; Visit Provider Physician Assistant
DX: R10.11 Right upper quadrant pain (principal)
CPT/HCPCS: 36415; 80053; 83690; 85025

== ENCOUNTER 2024-05-23 05:29 | Emergency (ER) | payer BC, SELFPAY ==
[2024-05-23 05:32] VITALS: BP 164/98; PULSE 99; RESP 16; TEMP 36.7; O2SAT 99
--- NOTE | 2024-05-23 05:34 | W.ED.GENAD ---
Discharge Plan Disposition Patient Disposition: Home Condition: Good Discharge Details Clinical Impression: Epigastric pain Primary Care Provider: Sowmya Lawrence ED Provider: Fabricio Knapp Meds and New Rx's Prescriptions: New famotidine 20 mg tablet 20 mg PO QHS Qty: 20 0RF Continued potassium gluconate 500 mg (83 mg) tablet 500 mg PO DAILY multivitamin [Daily Vitamin] 1 EACH tablet 1 ea PO DAILY Nexplanon 68 MG implant 68 mg SQ ONCE Qty: 1 0RF Discharge Instructions Instructions: Abdominal Pain, Adult ED Additional Instructions: You were seen in the ED for epigastric abdominal pain. Your exam and laboratory studies are reassuring. We will start you on famotidine for acid control and have you follow-up with primary care in the next couple of weeks for recheck. You should return to the ED for any fever, worsening pain, persistent vomiting, other concerns. HPI General Mode of arrival: ambulatory. Date/Time Provider Initiated Documentation: 05/23/24 05:33. Limitations to Documentation: no limitations. Information obtained by: patient, RN notes reviewed and old records reviewed. HPI Narrative: Patient presents to ED with epigastric abdominal pain that she woke up with this morning. Pain was nonradiating. She had no associated chest pain or shortness of breath. She had no associated nausea or vomiting. She has been well otherwise up until this morning. She does not drink a lot of caffeine and denies any alcohol or tobacco use. Occasionally uses ibuprofen which she did take this morning. Pain does seem improved at this point. She had her gallbladder out just about 2 years ago. Denies any urinary symptoms. Pain was quite severe and woke her up so she came in for evaluation. Related Data Home Medications Medication Instructions Recorded Confirmed multivitamin (Daily Vitamin tablet) 1 ea PO DAILY 06/07/05/23/24 etonogestrel 68 mg subdermal 68 mg SQ ONCE #1 implant 11/16/17 05/23/24 implant (Nexplanon) potassium gluconate 500 mg (83 mg) 500 mg PO DAILY 11/23/22 05/23/24 tablet famotidine 20 mg tablet 20 mg PO QHS #20 tabs 05/23/24 Previous Rx's Medication Instructions Recorded etonogestrel 68 mg subdermal 68 mg SQ ONCE #1 implant 11/16/17 implant (Nexplanon) famotidine 20 mg tablet 20 mg PO QHS #20 tabs 05/23/24 Allergies Allergy/AdvReac Type Severity Reaction Status Date / Time No Known Allergies Allergy Verified 05/23/24 05:37 General RAEGAN: 5 Review of Systems Narrative: Per HPI Exam Narrative Exam Narrative: Const: Obese female in NAD. VS per triage. HEENT: NC/AT. Normal facial exam. Neck: Supple. Trachea midline. Lungs: Normal respiratory effort. Lungs are clear. Cor: RRR without murmur. Good radial pulses. GI: Soft/ND/NT. Neuro: A+O x 3. Normal speech, mentation, gait. Cranial nerves II - XII grossly intact. No gross motor or sensory deficit. Ext: No C/C/E. Medical Decision Making Patient presenting to ED with epigastric abdominal pain that woke her up. Is improved at this point. No associated chest pain, nausea, vomiting, radiation to her back. Has previously had her gallbladder removed. Exam is reassuring and she has no tenderness at this point. I am not concerned for cardiac etiology as it is clearly abdominal in nature. Suspect likely acid related disease problem but will obtain labs including liver function and lipase. Will give IV fluids and Pepcid as well as GI cocktail and reevaluate once labs have returned. Patient's laboratory studies are unremarkable. Bilirubin is mildly elevated at 1.8 and lipase at 80 but liver function otherwise normal. Her white count is normal. Symptoms have completely resolved with IV Pepcid and GI cocktail. Will start the patient on Pepcid for the next couple of weeks and have her follow-up with primary care. Return precautions provided. Medical Records Medical records reviewed: Yes I reviewed the patient's medical records. Lab Data Lab results reviewed: Yes I reviewed the patient's lab results. 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 Sexually active: No Do you think of yourself as: straight/heterosexual Current gender identity: female What is your relationship status?: never How often do you talk on the phone with friends or family?: never How often do you get together with friends or relatives?: never How often do you attend quaker or restoration services?: decline to answer Do you belong to any clubs or organized social groups?: decline to answer Panel score (0-1 are the most socially isolated patients): 0 What type of physical activity do you participate in: walking Duration: 30-45 minutes/day Frequency: 5-6 times per week Special barry needs: No Seatbelt use: always Do you feel safe at home: Yes Do you feel safe in your relationship?: Yes Female Reproductive History Menstrual control method: implanted History History 0 Para Hx # Term Pregnancies Multiple births Hx # Pregnancies Ectopic pregnancies AB induced Hx Number of Living Children AB spontaneous
[2024-05-23 05:40] VITALS: BP 164/98; PULSE 99; RESP 16; TEMP 36.7; O2SAT 99
[2024-05-23] MEDS: FAMOTIDINE 20 MG in Normal Saline 100 ML 400 MG IVPB (06:23)
[2024-05-23] MEDS: Lactated Ringers 1,000 ML 1000 ML IV (06:24)
[2024-05-23 06:29] LABS: Abs Immature Grans 0.02 10^3/uL (0.0-0.06); Absolute Basophil Count 0.04 10^3/uL (0.0-0.2); Absolute Eosinophil Count 0.15 10^3/uL (0.0-0.7); Absolute Lymphocyte Count 1.97 10^3/uL (1.2-3.4); Absolute Monocyte Count 0.57 10^3/uL (0.1-0.8); Absolute Neutrophil Count 6.35 10^3/uL (1.2-6.7); Basophils % 0.4 %; Eosinophils % 1.6 %; HCT 43.9 % (36.0-46.0); HGB 14.6 g/dL (11.2-15.7); Immature Grans % 0.2 %; Lymphocytes % 21.6 %; MCH 29.7 pg (27.0-33.0); MCHC 33.3 % (32.0-36.0); MCV 89 fL (80-95); MPV 10.6 fL (8.0-11.0); Monocytes % 6.3 %; Neutrophils % 69.9 %; Platelet Count 208 10^3/uL (130-400); RBC 4.91 10^6/uL (3.93-5.22); RDW-SD 43.1 fL
[2024-05-23 06:44] LABS: Lipase 80 U/L (16-77)
[2024-05-23 06:48] LABS: ALT 40 U/L (14-59); AST 26 U/L (15-37); Albumin 3.8 g/dL (3.4-5.0); Alkaline Phosphatase 92 U/L (46-116); Anion Gap 9.6 mmol/L (3-11); BUN 14 mg/dL (7-18); Bilirubin, Total 1.83 mg/dL (0.2-1.0); CO2 26.4 mmol/L (21.0-32.0); CREATININE 0.7 mg/dL (0.55-1.02); Calcium 8.7 mg/dL (8.5-10.1); Chloride 104 mmol/L (98-107); Estimated GFR 119.99 (mL/min/1.73m2); Glucose 90 mg/dL (74-106); Potassium 3.8 mmol/L (3.5-5.1); Sodium 140 mmol/L (136-145); Total Protein 7.8 g/dL (6.4-8.2)
[2024-05-23 06:59] LABS: HCG Qual (Serum) Negative
[2024-05-23 07:18] VITALS: BP 143/86; PULSE 85; RESP 16; O2SAT 100
== END 2024-05-23 07:31 | disposition home or self-care (01) ==
PROVIDERS: Emergency Provider Emergency Medicine; PCP Nurse Practitioner
DX: R10.13 Epigastric pain (principal)
CPT/HCPCS: 80053; 83690; 96361; 96365; 99284; 84703; 85025; 99283

== ENCOUNTER 2024-06-05 18:44 | Outpatient (REF) | payer BC, SELFPAY ==
--- NOTE | 2024-06-05 19:15 | PAPFT_PTH ---
PATIENT: Elmira Gonzalez LOC: [facility] U#:[id number] AGE/SX: 28/F ROOM: RE06/05/[address]: Sowmya Lawrence APRN : 1995 BED: DIS: 06/05/2024 SPEC #: [id number] RECD: 06/06/24 18:18 STATUS: MILAGRO ANDRES #: [id number] GIULIA: 06/05/24 19:[address]: Sowmya Lawrence DEPT: [facility] Cytology RECD BY: Kristina Stone Tissues: 1 - CX/ENDOCX FOR PAP SMEARS Procedures: PAP THIN PREP/UVM Screening Comments: [id number]
== END 2024-06-05 18:45 | disposition home or self-care (01) ==
LOC: LBN 18:44
PROVIDERS: PCP Nurse Practitioner; Visit Provider Nurse Practitioner
DX: Z01.419 Encounter for gynecological examination (general) (routine) without abnormal findings (principal); Z00.00 Encounter for general adult medical examination without abnormal findings
CPT/HCPCS: 88142

== ENCOUNTER 2024-06-22 01:42 | Outpatient (CLI) | payer BC, SELFPAY ==
--- OUTSIDE RECORDS SUMMARY | 2024-06-22 01:43 | XMS_ITS | Clinical Summary ---
Author Organization [facility] Address [address] [place] [address] Care Team Providers Care Rod Placer Name Role Phone Unknown, Provider Primary Care Provider Encounters Date Type Department Care Team Description 06/07/2024 Lab Requisition [facility] Pathology & Laboratory Medicine - [facility] [address] [place] [address] Sowmya Lawrence NP Encounter for other general examination from Last 3 Months Social History Tobacco Use Types Packs/Day Years Used Date Smoking Tobacco: Never Assessed Sex and Gender Information Value Date Recorded Sex Assigned at Not on file Gender Identity Not on file Sexual Orientation Not on file Plan of Treatment Health Maintenance Due Date Last Done Comments Hepatitis C Screen 1995 Hepatitis B Vaccine (1 of 3 - 19+ 3-dose series) 12/15 COVID-19 Vaccine ( season) 2023 Procedures Procedure Name Priority Date/Time Associated Diagnosis Comments PAP TEST Today 06/05/2024 18:15 EDT Encounter for other general examination from Last 3 Months Results * PAP TEST (06/05/2024 18:15 EDT) Specimens A. Cervix and/or Endocervix , ThinPrep Imaging System with Manual Evaluation 06/09/2024 10:26 T [facility] Specimen Adequacy Satisfactory for Evaluation - transformation zone component absent 06/09/2024 10:26 T [facility] General Categorization Negative for intraepithelial lesion or malignancy 06/09/2024 10:26 T [facility] Attestation . 06/09/2024 10:26 [facility] at 1026 Clinical History SEE BELOW 06/09/20 10:26 EDT [facility] Performing Lab [facility] 06/09/2024 10:26 EDT [facility] Scanned Images 06/09/2024 10:26 EDT [facility] Pap Test CERVIX UTERI STRUCTURE / Unknown 06/05/2024 18:15 EDT 06/07/2024 11:43 EDT Sowmya Lawrence NP PATHOLOGY ORDERABLES [facility] [address] [place], [place] [address] from Last 3 Months Care Teams Rod Placer Relationship Specialty Start Date End Date Unknown, Provider, PCP - General 04/23/17
--- OUTSIDE RECORDS SUMMARY | 2024-06-22 01:43 | XMS_ITS | Referral Summary ---
Author Organization [facility] Address [address] [place] [address] Care Team Providers Care Structural Steel Worker Apprentice Name Role Phone Unknown, Provider Primary Care Provider Encounters Date Type Department Care Team Description 06/07/2024 Lab Requisition [facility] Pathology & Laboratory Medicine - [facility] [address] [place] [address] Sowmya Lawrence NP Encounter for other general examination from Last 3 Months Social History Tobacco Use Types Packs/Day Years Used Date Smoking Tobacco: Never Assessed Sex and Gender Information Value Date Recorded Sex Assigned at Not on file Gender Identity Not on file Sexual Orientation Not on file Plan of Treatment Not on file Procedures Procedure Name Priority Date/Time Associated Diagnosis Comments PAP TEST Today 06/05/2024 18:15 EDT Encounter for other general examination from Last 3 Months Results * PAP TEST (06/05/2024 18:15 EDT) Specimens A. Cervix and/or Endocervix , ThinPrep Imaging System with Manual Evaluation 06/09/2024 10:26 T [facility] Specimen Adequacy Satisfactory for Evaluation - transformation zone component absent 06/09/2024 10:26 T [facility] General Categorization Negative for intraepithelial lesion or malignancy 06/09/2024 10:26 [facility] Attestation . 06/09/2024 10:26 [facility] at 1026 Clinical History SEE BELOW 06/09/20 10:26 [facility] Performing Lab [facility] 06/09/2024 10:26 [facility] Scanned Images 06/09/2024 10:26 EDT [facility] Pap Test CERVIX UTERI STRUCTURE / Unknown 06/05/2024 18:15 EDT 06/07/2024 11:43 EDT Sowmya Lawrence NP PATHOLOGY ORDERABLES [facility] [address] [place] [address] from Last 3 Months Care Teams Structural Steel Worker Apprentice Relationship Specialty Start Date End Date Unknown, ProviderMD PCP - General 04/23/17
--- OUTSIDE RECORDS SUMMARY | 2024-06-22 01:44 | XMS_ITS | Encounter Summary ---
Author Organization [facility] Address [address] [place] [address] Care Team Providers Care Sawdust Machine Operator Name Role Phone Unknown, Provider MD Primary Care Provider [phone] Encounter Details Date Type Department Care Team (Late st Contact Info) Description 12/03/2022 Lab Requisition [facility] Pathology & Laboratory Medicine - [facility] [address] [place] [address] Ludwin Romero MD Encounter for other general examination Social History Tobacco Use Types Packs/Day Years Used Date Smoking Tobacco: Never Assessed Sex and Gender Information Value Date Recorded Sex Assigned at Not on file Gender Identity Not on file Sexual Orientation Not on file documented as of this encounter Plan of Treatment Not on file documented as of this encounter Procedures Procedure Name Priority Date/Time Associated Diagnosis Comments SURGICAL PATHOLOGY Today 12/02/2022 13 :02 EST Encounter for other general examination documented in this encounter Results * SURGICAL PATHOLOGY (12/02/2022 13:02 EST) Note to Patient The following pathology results have been interpreted by your pathologist and may be available to you before your health provider has had the opportunity to review them. Please allow time for your provider to receive these results and explore management options, if applicable. 12/07/2022 10:47 EST [facility] Final Diagnosis A. GALLBLADDER, CHOLECYSTECTOMY: - Chronic cholecystitis. - Cholelithiasis (gross only). 12/07/2022 10:47 EST [facility] Attestation By the signature below, the attending physician certifies that they have 1) personally conducted a gross and/or microscopic examination of the described specimen(s), and/or personally interpreted the results of laboratory testing of the described specimen(s), and 2) personally rendered or confirmed the above diagnosis. 12/07/2022 10:47 [facility] at 1046 Clinical History Cholelithiasis 12/07/2022 10:47 [facility] Gross Description A. Received in formalin labelled with proper patient identification (initials T, J) and gallbladder is an intact gallbladder with an attached segment of cystic duct (9.0 x 2.5 x 2.0 cm). A cystic duct lymph node is not present. The serosa is smooth and pink-sauceda to dark green. The mucosa is velvety, dark green and the wall is 0.1 cm in thickness. The cystic duct lumen is patent and measures 0.3 cm in diameter. The cystic duct margin is inked blue. Multiple multifaceted dark green to bourne yellow to dark brown calculi are present (5.5 x 5.1 x 1.1 cm in aggregate). Two benefits representative sections and the en face cystic duct margin are submitted in A1. LAMINE OSBORNE(ASCP) 12/03/2022 9:23 12/07/2022 10:47 [facility] Performing Lab [facility] 12/07/2022 10:47 [facility] Scanned Images 12/07/2022 10:47 [facility] Tissue ENTIRE GALLBLADDER / Unknown 12/02/2022 13:02 EST 12/03/2022 8:25 EST Ludwin Romero MD PATHOLOGY ORDERABLES [facility] [address] [place] [address] documented in this encounter Visit Diagnoses Diagnosis Encounter for other general examination documented in this encounter Care Teams Sawdust Machine Operator Relationship Specialty Start Date End Date Unknown, Provider, PCP - General 04/23/17 documented as of this encounter
--- OUTSIDE RECORDS SUMMARY | 2024-06-22 01:44 | XMS_ITS | Encounter Summary ---
Author Organization [facility] Address [address] [place] [address] Care Team Providers Care Technicians And Trades Workers Name Role Phone Unknown, Provider Primary Care Provider Encounter Details Date Type Department Care Team (Late st Contact Info) Description 06/07/2024 Lab Requisition [facility] Pathology & Laboratory Medicine - [facility] [address] [place] [address] Sowmya Lawrence, SAMPLER AND TEST PREPARER [address] [place], [place] [id number] Encounter for other general examination Social History [...] 18:15 EDT Encounter for other general examination documented in this encounter Results * PAP TEST (06/05/2024 18:15 EDT) Specimens A. Cervix and/or Endocervix , ThinPrep Imaging System with Manual Evaluation 06/09/2024 10:26 T [facility] Specimen Adequacy Satisfactory for Evaluation - transformation zone component absent 06/09/2024 10:26 T [facility] General Categorization Negative for intraepithelial lesion or malignancy 06/09/2024 10:26 T [facility] Attestation . 06/09/2024 10:26 [facility] at 1026 Clinical History SEE BELOW 06/09/20 10:26 EDT [facility] Performing Lab [facility] 06/09/2024 10:26 EDT [facility] Scanned Images 06/09/2024 10:26 EDT [facility] Pap Test CERVIX UTERI STRUCTURE / Unknown 06/05/2024 18:15 EDT 06/07/2024 11:43 EDT Sowmya Lawrence NP PATHOLOGY ORDERABLES [facility] [address] [place] [address] documented in this encounter Visit Diagnoses Diagnosis Encounter for other general examination documented in this encounter Care Teams Technicians And Trades Workers Relationship Specialty Start Date End Date Unknown, Provider, PCP - General 04/23/17 documented as of this encounter
--- OUTSIDE RECORDS SUMMARY | 2024-06-22 01:44 | XMS_ITS | Encounter Summary ---
Author Organization [facility] Address [address] [place] [address] Care Team Providers Care Cleaning Porter Name Role Phone Unknown, Provider Primary Care Provider Encounter Details Date Type Department Care Team (Late st Contact Info) Description 01/08/2021 Lab Requisition [facility] Pathology & Laboratory Medicine - [address] [address] Sowmya Lawrence, BELEN [address] [place], [place] [id number] Encounter for other general examination Social History [...] Date/Time Associated Diagnosis Comments PAP TEST Today 01/07/2021 14:30 EST Encounter for other general examination documented in this encounter Results * PAP TEST (01/07/2021 14:30 EST) Specimens A. Cervix and/or Endocervix , ThinPrep Imaging System with Manual Evaluation 01/16/2021 10:01 [facility] Specimen Adequacy Satisfactory for Evaluation - transformation zone component absent Scant squamous epithelial component, contamination present, possibly lubricant 01/16/2021 10:01 [facility] General Categorization Negative for intraepithelial lesion or malignancy 01/16/2021 10:01 [facility] Attestation . 01/16/2021 10:01 [facility] at 1001 Clinical History See below 01/17/20 10:01 EST [facility] Performing Lab [facility] 01/16/2021 10:01 EST [facility] Scanned Images 01/16/2021 10:01 EST [facility] Papanicolaou smear specimen (specimen) CERVIX UTERI STRUCTURE / Unknown 01/07/2021 14:30 EST 01/08/2021 13:00 EST Sowmya Lawrence NP PATHOLOGY ORDERABLES [facility] [address] [place] [address] documented in this encounter Visit Diagnoses Diagnosis Encounter for other general examination documented in this encounter Care Teams Cleaning Porter Relationship Specialty Start Date End Date Unknown, Provider, PCP - General 04/23/17 documented as of this encounter
--- OUTSIDE RECORDS SUMMARY | 2024-06-22 01:44 | XMS_ITS | Encounter Summary ---
Author Organization [facility] Address [address] [place] [address] Care Team Providers Care Rare/Endangered Species Specialist Name Role Phone Unknown, Provider Primary Care Provider [phone] Encounter Details Date Type Department Care Team (Late st Contact Info) Description 04/21/2017 Results Only [facility] [phone] Sowmya Edwards, FAST FOOD CREW LEAD [address] [place] [address] Social History Tobacco Use Types Packs/Day Years Used Date Smoking Tobacco: Never Assessed Sex and Gender Information Value Date Recorded Sex Assigned at Not on file Gender Identity Not on file Sexual Orientation Not on file documented as of this encounter Plan of Treatment Not on file documented as of this encounter Procedures Procedure Name Priority Date/Time Associated Diagnosis Comments PAP TEST- RESULT ONLY Routine 04/21/2017 0:00 EDT documented in this encounter Results * PAP TEST- RESULT ONLY (04/21/2017 0:00 EDT) Pathology Report: CYTOPATHOLOGY REPORT Reports generated via electronic interface contain original data; however they are lacking the format of the original report. Caution should be taken when reading/interpreti ng unformatted reports. Name: ? RADHA ENGLAND ? Accession #: ? [id number] : ? 1995 (Age: 21) ??F ?Collect Date: ? 04/21/2017 Location: ? [facility] ? Receive Date: ? 04/23/2017 Provider: ?SOWMYA EDWARDS FAST FOOD CREW LEAD Copy to: ? Specimen/Source: ?Pap Test, Cervix, ThinPrep Imaging System with manual evaluation Last Menstrual Period: ? 04/16/2017 ? SPECIMEN ADEQUACY ? Satisfactory for Evaluation - transformation zone component present GENERAL CATEGORIZATION ? Negative for Intraepithelial Lesion or Malignancy ? Document reviewed and electronically signed by: ? JACINTO Vasques(ASCP) ? Report Date: ??05/03/2017 13:45 End of Report [facility] 04/21/2017 04/23/2017 Sowmya Edwards NP PATHOLOGY ORDERABLES [facility] [address] [place] [address] documented in this encounter Visit Diagnoses Not on filedocumented in this encounter Care Teams Rare/Endangered Species Specialist Relationship Specialty Start Date End Date Unknown, Provider, PCP - General 04/23/17 documented as of this encounter
[2024-06-22 10:22] LABS: Calculated LDL 99 mg/dL (<100); Cholesterol 147 mg/dL (<200); HDL Cholesterol 37 mg/dL (40-60); Triglyceride 57 mg/dL (<150)
[2024-06-22 11:21] LABS: Hemoglobin A1C 5.4 % (<5.7)
== END 2024-06-22 01:43 | disposition home or self-care (01) ==
LOC: LBO 01:42
PROVIDERS: PCP Nurse Practitioner; Referring Provider Nurse Practitioner; Visit Provider Nurse Practitioner
DX: Z13.220 Encounter for screening for lipoid disorders (principal); E66.9 Obesity, unspecified
CPT/HCPCS: 36415; 80061; 83036

== ENCOUNTER 2025-09-02 05:44 | Emergency (ER) | payer BC, SELFPAY ==
[2025-09-02 05:47] VITALS: BP 154/89; PULSE 87; RESP 18; TEMP 36.5; O2SAT 96
--- NOTE | 2025-09-02 06:15 | DI.CT_ITS ---
Exam(s) CT CERVICAL SPINE RECONS CT BRAIN NECK CTA EXAM: CT BRAIN NECK CTA CLINICAL HISTORY: RLE numbness, saddle anesthesia. TECHNIQUE: Imaging Protocol: Axial CT angiography was performed with multi- slice acquisition and multi-planar and MIP reconstructions. CONTRAST MATERIAL: Intravenous: Omnipaque 350 Contrast volume:85 ml COMPARISON: CT CT CERVICAL SPINE RECONS from 09/02/2025 FINDINGS: CT Head W/O and W contrast: Ventricles and Extra axial spaces: Normal in size and morphology for the patient's age. Hemorrhage: None. Cerebral parenchyma: No evidence of acute infarct or mass. Midline shift: None. Brainstem/Cerebellum: No acute findings.. Calvarium: Normal. Visualized Paranasal sinuses/Mastoids: Mucous retention cyst in the left maxillary sinus. Mild mucous within the right sphenoid sinus. Mild ethmoid mucosal thickening. Soft Tissues: Unremarkable. Enhancement: Normal. Venous sinuses are patent. CTA Brain W: Internal Carotid Arteries: No vascular beading. Right: No aneurysm, occlusion or significant stenosis. Tortuosity of the distal right internal carotid artery. Left: No aneurysm, occlusion or significant stenosis. Middle Cerebral Arteries: Right: No aneurysm, occlusion or significant stenosis. Left: No aneurysm, occlusion or significant stenosis. Anterior Cerebral Arteries: Right: No aneurysm, occlusion or significant stenosis. Left: No aneurysm, occlusion or significant stenosis. Posterior cerebral Arteries: Right: No aneurysm, occlusion or significant stenosis. Left: No aneurysm, occlusion or significant stenosis. Vertebral Arteries: Right: No aneurysm, occlusion or significant stenosis. Left: No aneurysm, occlusion or significant stenosis. Basilar Artery: No aneurysm, occlusion or significant stenosis. CTA Neck W: Visualized aorta: Unremarkable. Visualized pulmonary arteries: Unremarkable. Subclavian arteries: Unremarkable. Common Carotid: Right: No dissection, occlusion or significant stenosis. Left: No dissection, occlusion or significant stenosis. External Carotid: Right: No dissection, occlusion or significant stenosis. Left: No dissection, occlusion or significant stenosis. Internal Carotid: Right: No dissection, occlusion or significant stenosis. Left: No dissection, occlusion or significant stenosis. Vertebral Artery: Right: No dissection, occlusion or significant stenosis. Left: No dissection, occlusion or significant stenosis. Lung Apices: No acute findings. Bones/cervical spine: No acute abnormality. Reversal of the cervical lordosis secondary to flexion of the neck. Soft Tissues: Normal. IMPRESSION: 1. CTA brain: Normal CTA examination of the [place]. 2. Head CT: No acute abnormality. 3. CTA neck: No evidence of occlusion, significant stenosis or dissection. Unremarkable CT of the cervical spine. The preliminary [facility] report was reviewed. RADIATION DOSE DELIVERED: Total DLP DATA REPOSITORY: All CT scans at this facility are submitted to the National Radiology Data Registry (NRDR) Dose Index Registry (DIR) with the [employer] (ACR). RADIATION OPTIMIZATION: All CT scans at this facility use at least one of these dose optimization techniques: automated exposure control; mA and/or kV adjustment per patient size (includes targeted exams where dose is matched to clinical indication); or iterative reconstruction.
--- NOTE | 2025-09-02 06:22 | DI.CT_ITS ---
Exam(s) CT THORACIC SPINE WO EXAM: CT THORACIC SPINE WO CLINICAL HISTORY: RLE numbness, saddle anesthesia. TECHNIQUE: Imaging Protocol: Axial computed tomography images with coronal and sagittal reformatted images were created and reviewed. CONTRAST MATERIAL: Noncontrast Oral: / no COMPARISON: No exams were available for comparison FINDINGS: Bones: No fractures or dislocations are seen. No evidence of lytic or blastic lesion. The alignment of the spine is normal including the cervicothoracic junction. No significant degenerative changes. Soft tissues: The soft tissues of the chest are unremarkable. The lungs appear clear visualized. No paraspinal masses. No visible masses within the central canal. IMPRESSION: Normal CT of the thoracic spine. The preliminary [facility] report was reviewed. RADIATION DOSE DELIVERED: Total DLP DATA REPOSITORY: All CT scans at this facility are submitted to the National Radiology Data Registry (NRDR) Dose Index Registry (DIR) with the [employer] (ACR). RADIATION OPTIMIZATION: All CT scans at this facility use at least one of these dose optimization techniques: automated exposure control; mA and/or kV adjustment per patient size (includes targeted exams where dose is matched to clinical indication); or iterative reconstruction.
--- NOTE | 2025-09-02 06:25 | W.ED.GENAD ---
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 Primary Care Provider: Richard Vigil ED Provider: Priscilla Castillo Home Meds and New Rx's Prescriptions: No Action fluticasone propionate [Flonase Allergy Relief] 50 mcg/actuation spray,suspension 2 spray intranasal DAILY Qty: 16 12RF Rx Instructions: administer into each nostril Daily Probiotic (4 Strains) 11 billion cell -15 mg capsule 1 cap PO DAILY digestive enzymes Tablet 1 tab PO TID famotidine 20 mg tablet 20 mg PO QHS Qty: 30 1RF Zepbound 5 mg/0.5 mL pen injector 5 mg subcut QWEEK Qty: 2 0RF Zepbound 7.5 mg/0.5 mL pen injector 7.5 mg subcut QWEEK Qty: 2 0RF Zepbound 10 mg/0.5 mL pen injector 10 mg subcut QWEEK Qty: 2 0RF Zepbound 12.5 mg/0.5 mL pen injector 12.5 mg subcut QWEEK Qty: 2 0RF Zepbound 15 mg/0.5 mL pen injector 15 mg subcut QWEEK Qty: 2 6RF ondansetron 8 mg tablet,disintegrating 8 mg PO Q8H PRN (Reason: nausea and vomiting) Qty: 30 5RF albuterol sulfate 90 mcg/actuation HFA aerosol inhaler 2 puff inhalation Q6H PRN (Reason: shortness of breath or wheezing) Qty: 6.7 0RF (DME) Aerochamber MV Spacer See Rx Instructions .Route Qty: 10 0RF Rx Instructions: As directed Zepbound 2.5 mg/0.5 mL pen injector 2.5 mg subcut QWEEK Qty: 2 1RF Rx Instructions: for 4 weeks multivitamin [Daily Vitamin] 1 EACH tablet 1 ea PO DAILY Nexplanon 68 MG implant 68 mg SQ ONCE Qty: 1 0RF HPI General Date/Time Provider Initiated Documentation: 09/02/25 05:45. Limitations to Documentation: no limitations. Information obtained by: patient. HPI Narrative: 29yo F with obesity presenting for numbness to groin and right leg. First noted numbness to buttocks and groin two days ago, has been worsening since then. This morning woke with numbness on her right leg; difficulty to clarify location/extent. No weakness, urinary incontinence, bowel incontinence. No difficulty walking. No back pain. No recent falls or injuries. No hx of spinal surgery, spinal instrumentation, or IVDU at any point. No known tick exposures. URI symptoms last week. Otherwise in her usual state of health with no fevers, chills, rash, nasuea, vomting, diarrhea, abdominal pain, headache, chest pain, shortness of breath, dysuria, hematuria, or other concerns. Related Data Home Medications ?Medication ?Instructions ?Recorded ?Confirmed multivitamin (Daily Vitamin tablet) 1 ea PO DAILY 06/07/15 09/02/25 etonogestrel 68 mg subdermal 68 mg SQ ONCE #1 implant 11/16/17 09/02/25 implant (Nexplanon) L.paracasei,rhamnosus-B.animalis 1 cap PO DAILY 06/05/24 09/02/25 11 billion cell-vit C 15 mg capsule (Daily Probiotic (4 Strains)) digestive enzymes 1 tab PO TID 06/05/24 09/02/25 albuterol sulfate 90 mcg/actuation 2 puff inhalation Q6H PRN 07/03/24 09/02/25 aerosol inhaler shortness of breath or wheezing #6.7 grams inhalational spacing device #10 ea 07/03/24 09/02/25 (Aerochamber MV spacer) famotidine 20 mg tablet 20 mg PO QHS #30 tabs 07/12/25 09/02/25 ondansetron 8 mg disintegrating 8 mg PO Q8H PRN nausea and 07/12/25 09/02/25 tablet vomiting #30 tabs tirzepatide (weight loss) 10 10 mg (0.5 mL) subcut QWEEK #2 mL 07/12/25 09/02/25 mg/0.5 mL subcutaneous pen injector (Zepbound) Held on 08/15/25. Instructions: Changed by Provider tirzepatide (weight loss) 12.5 12.5 mg (0.5 mL) subcut QWEEK #2 mL 07/12/25 09/02/25 mg/0.5 mL subcutaneous pen injector (Zepbound) Held on 08/15/25. Instructions: Changed by Provider tirzepatide (weight loss) 15 15 mg (0.5 mL) subcut QWEEK #2 mL 07/12/25 09/02/25 mg/0.5 mL subcutaneous pen injector (Zepbound) Held on 08/15/25. Instructions: Changed by Provider tirzepatide (weight loss) 5 mg/0.5 5 mg (0.5 mL) subcut QWEEK #2 mL 07/12/25 09/02/25 mL subcutaneous pen injector (Zepbound) Held on 08/15/25. Instructions: Changed by Provider tirzepatide (weight loss) 7.5 7.5 mg (0.5 mL) subcut QWEEK #2 mL 07/12/25 09/02/25 mg/0.5 mL subcutaneous pen injector (Zepbound) Held on 08/15/25. Instructions: Changed by Provider fluticasone propionate 50 2 spray intranasal DAILY #16 grams 07/18/25 09/02/25 mcg/actuation nasal spray,suspension (Flonase Allergy Relief) tirzepatide (weight loss) 2.5 2.5 mg (0.5 mL) subcut QWEEK #2 mL 08/15/25 09/02/25 mg/0.5 mL subcutaneous pen injector (Zepbound) Previous Rx's ?Medication ?Instructions ?Recorded etonogestrel 68 mg subdermal 68 mg SQ ONCE #1 implant 11/16/17 implant (Nexplanon) albuterol sulfate 90 mcg/actuation 2 puff inhalation Q6H PRN 07/03/24 aerosol inhaler shortness of breath or wheezing #6.7 grams inhalational spacing device #10 ea 07/03/24 (Aerochamber MV spacer) famotidine 20 mg tablet 20 mg PO QHS #30 tabs 07/12/25 ondansetron 8 mg disintegrating 8 mg PO Q8H PRN nausea and 07/12/25 tablet vomiting #30 tabs tirzepatide (weight loss) 10 10 mg (0.5 mL) subcut QWEEK #2 mL 07/12/25 mg/0.5 mL subcutaneous pen injector (Zepbound) Held on 08/15/25. Instructions: Changed by Provider tirzepatide (weight loss) 12.5 12.5 mg (0.5 mL) subcut QWEEK #2 mL 07/12/25 mg/0.5 mL subcutaneous pen injector (Zepbound) Held on 08/15/25. Instructions: Changed by Provider tirzepatide (weight loss) 15 15 mg (0.5 mL) subcut QWEEK #2 mL 07/12/25 mg/0.5 mL subcutaneous pen injector (Zepbound) Held on 08/15/25. Instructions: Changed by Provider tirzepatide (weight loss) 5 mg/0.5 5 mg (0.5 mL) subcut QWEEK #2 mL 07/12/25 mL subcutaneous pen injector (Zepbound) Held on 08/15/25. Instructions: Changed by Provider tirzepatide (weight loss) 7.5 7.5 mg (0.5 mL) subcut QWEEK #2 mL 07/12/25 mg/0.5 mL subcutaneous pen injector (Zepbound) Held on 08/15/25. 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 Head: Normocephalic, atraumatic Neck: Trachea midline, ?Neck supple. ENT: ?MMM.? Cardiac: ?RRR, no murmurs appreciated Resp: No respiratory distress. CTAB. Abd: ?Soft, non-distended, nontender Extremities: ?No deformities.? No peripheral edema. Back: No midline tenderness. Neuro: ? GCS 15.? PERRL.? EOMI.? Fluent speech, no dysarthria. Motor- 5/5 strength symmetric bilateral upper and lower extremities including shoulder abductors/adductors, elbow flexors/extensors, wrist flexors/extensors, finger abductors/adductors, hipflexors/extensors, knee flexors/extensors, ankle dorsiflexors and planter flexors. Sensation- ?+ saddle anesthesia. Slightly diminished sensation to light touch dorsum of right foot. Otherwise intact to light touch and symmetric multiple dermatomes including upper and lower extremities. Rectal: Questionably diminished rectal tone Coordination- No dysmetria on finger to nose Reflexes- 2/4 achilles & patellar on right, no clonus. 1/4 achilles and patellar left. Gait/station: ?Normal stance.? No truncal ataxia. Steady gait with equal normal steps CRANIAL NERVES: II: Pupils equal and reactive, III, IV, : EOM intact, no gaze preference or deviation, no nystagmus. V: normal sensation in V1, V2, and V3 segments bilaterally VII: no asymmetry, no nasolabial fold flattening VIII: normal hearing to speech IX, X: normal palatal elevation, no uvular deviation XI: 5/5 head turn and 5/5 shoulder shrug bilaterally XII: midline tongue protrusion Course Vital Signs Vital signs: Vital Signs Temperature 36.5 C 09/02/25 05:47 Pulse 87 09/02/25 05:47 Respiratory Rate 18 09/02/25 05:47 Blood Pressure 154/89 H 09/02/25 05:47 Pulse Oximetry 96 09/02/25 05:47 Temperature 36.5 C 09/02/25 05:47 Temperature Source Oral 09/02/25 05:47 Pulse 87 09/02/25 05:47 Respiratory Rate 18 09/02/25 05:47 Blood Pressure 154/89 H 09/02/25 05:47 Blood Pressure Position Sitting 09/02/25 05:47 Pulse Oximetry 96 09/02/25 05:47 Oxygen Delivery Method Room Air 09/02/25 05:47 Oxygen Flow Rate 0 09/02/25 05:47 Pain Level 0 09/02/25 05:54 Medical Decision Making 29yo F with obesity presenting for numbness to groin and right leg. First noted numbness to buttocks and groin two days ago, has been worsening since then. This morning woke with numbness on her right leg. No bowel/bladder incontinence, no back pain, no trauma. No hx of spinal surgery, spinal instrumentation, or IVDU at any point. No known tick exposures; did have URI symptoms last week. Vital signs reassuring on arrival. Neurologic exam significant for clear saddle anesthesia, questionably diminished rectal tone, patellar/achilles reflexes increased right compared to left. Exam concerning for acute cord compression syndromes (spinal cord, conus, cauda equina); will need to transfer for emergent MRI, will give IV dexamethasone in the meantime. No risk factors for epidural abscess and is systemically well. Differential also includes CVA, MS, malignancy, transverse myelitis, GBS, other emergent processes. As there may be a delay to transfer, will start with CT imaging here (would not hold patient here for this if able to obtain accepting facility rapidly). Laboratory workup to include CBC, chemistry, inflammatory markers; nursing requested to get post void residual. -Spoke with Martine at [facility] [place] [facility]; she will speak with their medical support assistant regarding capacity and call us back -CBC reassuring with no leukocytosis or anemia, ESR normal. Remainder of labs and imaging pending. Will be signed out to oncoming physician, plan to transfer patient for MRI. If [facility] unable to [place] would next reach out to [facility]. Critical Care Time Critical Care Time Critical Care Time: Yes Total Critical Care Time: 31 Attestation: Due to a high probability of clinically significant, life threatening deterioration, the patient required my highest level of preparedness to intervene emergently and I personally spent this critical care time directly and personally managing the patient. This critical care time included obtaining a history; examining the patient; ordering and review of studies; arranging urgent treatment with development of a management plan; and, discussions with others namely attempting to arrange emergent transfer for MRI. This critical care time was performed to assess and manage the high probability of imminent, life-threatening deterioration that could result in multi-organ failure. It was exclusive of separately billable procedures and treating other patients [facility] All Active Problems Saddle anesthesia (Acute) Serous otitis media (Acute) Wheezing (Acute) Chronic GERD (Acute) Snoring (Acute) [facility] Sleep note 02/15/25 Dyspepsia (Acute) 07/04/24 [facility] GI note Encounter for removal and reinsertion of Nexplanon (Acute) Obesity (Chronic) Presence of subdermal contraceptive implant (Acute 01/20/21) Removal and replacement 06/08/2024 Medical History BMI 40.0-44.9, adult Surgical History S/P cholecystectomy Hx of wisdom tooth extraction Family History Father Cancer Grandmother Cancer Social History (Updated 07/12/25 @ 16:22 by Karely Salcedo RN) Smoking/Tobacco Use Status: Never Tobacco: How many years used: 0 Smoking risk assessment performed?: Yes Alcohol Intake: never Drug use: Never Substance use type: does not use Adopted: No Caregiver/Support person: No Foster care: No Household members: family Housing: apartment Number of Children: 0 Communication Needs: Corrective Lenses Education Level: college Details: bachelor's degree Do you need help understanding health information?: Never 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[employer]) Sexually active: No Do you think of yourself as: straight/heterosexual Current gender identity: female What is your relationship status?: living with partner How often do you talk on the phone with friends or family?: once per week How often do you attend gnosticist or baptist services?: decline to answer Do you belong to any clubs or organized social groups?: no Panel score (0-1 are the most socially isolated patients): 1 What type of physical activity do you participate in: walking and other Details: gym, boot camp once a week Duration: 60-90 minutes/day Frequency: 5-6 times per week Vida/Latter-Day: None Special vida needs: No Seatbelt use: always Helmet use: Yes Drive intox or ride w/intox regional 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
[2025-09-02 06:45] LABS: ESR 16 mm/hr (0-20)
[2025-09-02 06:49] LABS: Abs Immature Grans 0.02 10^3/uL (0.0-0.06); HCT 44.0 % (36.0-46.0); HGB 14.7 g/dL (11.2-15.7); Immature Grans % 0.3 %; MCH 29.7 pg (27.0-33.0); MCHC 33.4 % (32.0-36.0); MCV 89 fL (80-95); MPV 11.4 fL (8.0-11.0); Platelet Count 184 10^3/uL (130-400); RBC 4.95 10^6/uL (3.93-5.22); RDW 13.2 % (11.7-14.6); RDW-SD 43.0 fL; WBC 6.91 10^3/uL (4.4-10.8)
[2025-09-02] MEDS: Dexamethasone 10 MG/ML VIAL 17 MG IVP (07:03)
[2025-09-02 07:04] LABS: Glucose Negative (Negative)
[2025-09-02 07:09] LABS: ALT 34 U/L (14-59); AST 20 U/L (15-37); Albumin 3.8 g/dL (3.4-5.0); Alkaline Phosphatase 108 U/L (46-116); Anion Gap 9.2 mmol/L (3-11); BUN 11 mg/dL (7-18); Bilirubin, Total 1.1 mg/dL (0.2-1.0); CO2 28.8 mmol/L (21.0-32.0); Calcium 8.6 mg/dL (8.5-10.1); Chloride 104 mmol/L (98-107); Estimated GFR 101.59 (mL/min/1.73m2); Glucose 88 mg/dL (74-106); Magnesium 2.3 mg/dL (1.8-2.4); Potassium 3.4 mmol/L (3.5-5.1); Sodium 142 mmol/L (136-145); Total Protein 7.7 g/dL (6.4-8.2)
[2025-09-02 07:10] LABS: RBC 0-2 HPF (0-2)
[2025-09-02 07:12] LABS: C-Reactive Protein < 0.50 mg/dL (<or=0.5)
[2025-09-02] MEDS: Normal Saline - Diluent 50 ML VIAL IJ (07:27)
[2025-09-02] MEDS: Omnipaque 350 MG/ML 100 ML BTL IJ (07:28)
[2025-09-02] MEDS: Normal Saline Flush 10 ML SYR IVP (07:28)
[2025-09-02 07:38] LABS: HCG Quant, Pregnancy 2 mIU/mL (1-3)
--- NOTE | 2025-09-02 07:45 | DI.CT_ITS ---
Exam(s) CT LUMBAR SPINE RECONS CT ABDOMEN PELVIS W EXAM: CT ABDOMEN PELVIS W CLINICAL HISTORY: saddle anesthesia and RLE numbness. TECHNIQUE: Imaging Protocol: Axial computed tomography images with coronal and sagittal reformatted images were created and reviewed CONTRAST MATERIAL: Intravenous: Omnipaque 350 Contrast volume:85 ml. A total of 85 mL was administered for both the CTA head and neck and for this CT abdomen pelvis Oral: no COMPARISON: CT CT LUMBAR SPINE RECONS from 09/02/[address] BRAIN NECK CTA from 09/02/[address] THORACIC SPINE WO from 09/02/2025 FINDINGS: ABDOMEN and PELVIS: Lung Bases: No acute findings. Liver: Normal density. No suspicious mass. Gallbladder and biliary tract: Cholecystectomy. No biliary dilation. Pancreas: Normal density. No abnormal calcifications or inflammatory process. No evidence of mass. Spleen: Normal. Kidneys: Normal size, contour and axis. No radiodense stones. No obstructive uropathy. No suspicious masses seen. Adrenal glands: No masses seen. Vasculature: Abdominal aorta non-dilated. Soft tissues: Tiny fat containing umbilical hernia Bladder: No gross wall thickening. No calculi.No focal mass. Bowel: No obstruction. No bowel wall thickening. Appendix normal. Normal quantity of stool. Peritoneal cavity: No ascites. No focal collection. No mesenteric inflammatory response. No free air. Bones/lumbar spine: Unremarkable for age. The disc spaces are maintained. No visible disc herniation. No paraspinal mass. No neural foraminal narrowing or central canal stenosis. The SI joints show minimal sclerosis. No bony erosions. Reproductive organs: Unremarkable. Lymph nodes: No pathologically enlarged lymph nodes. IMPRESSION:: No acute abnormality in the abdomen or pelvis. No abnormality in the lumbar spine. The preliminary [facility] report was reviewed. RADIATION DOSE DELIVERED: Total DLP DATA REPOSITORY: All CT scans at this facility are submitted to the National Radiology Data Registry (NRDR) Dose Index Registry (DIR) with the [employer] (ACR). RADIATION OPTIMIZATION: All CT scans at this facility use at least one of these dose optimization techniques: automated exposure control; mA and/or kV adjustment per patient size (includes targeted exams where dose is matched to clinical indication); or iterative reconstruction.
[2025-09-02 09:21] VITALS: BP 143/87; PULSE 92; O2SAT 96
--- NOTE | 2025-09-02 11:25 | DI.[facility]_ITS ---
PROCEDURE INFORMATION: Exam: CTA Head Without And With Contrast, Arteriography Exam date and time: 09/02/2025 7:58 AM Age: 29 years old Clinical indication: Other: Rle numbness, saddle anesthesia TECHNIQUE: Imaging protocol: Computed tomographic angiography of the head without and with contrast. Exam focused on the arteries. 3D rendering (Not supervised by radiologist): MIP and/or 3D reconstructed images were created by the technologist. Contrast material: OMNIPAQUE 350; Contrast volume: 80 ml; Contrast route: INTRAVENOUS (IV); COMPARISON: CT CERVICAL SPINE RECONS 09/02/2025 7:58 AM FINDINGS: ANTERIOR CIRCULATION: Right internal carotid artery: Intracranial segment is patent with no significant stenosis or occlusion. No aneurysm. Right middle cerebral artery: No occlusion or significant stenosis. No aneurysm. Right anterior cerebral artery: No occlusion or significant stenosis. No aneurysm. Left internal carotid artery: Intracranial segment is patent with no significant stenosis. No aneurysm. Left middle cerebral artery: No occlusion or significant stenosis. No aneurysm. Left anterior cerebral artery: No occlusion or significant stenosis. No aneurysm. POSTERIOR CIRCULATION: Right vertebral artery: No occlusion or significant stenosis. No aneurysm. Left vertebral artery: No occlusion or significant stenosis. No aneurysm. Basilar artery: No occlusion or significant stenosis. No aneurysm. Right posterior cerebral artery: No occlusion or significant stenosis. No aneurysm. Left posterior cerebral artery: No occlusion or significant stenosis. No aneurysm. HEAD: Brain: Partially empty sella. No acute large territorial infarct. No intracranial extra-axial collection. No acute intracranial hemorrhage. No midline shift. Cerebral ventricles: Normal. No ventriculomegaly. Bones: Unremarkable. No acute fracture. Paranasal sinuses: Retention cyst of the left maxillary sinus. Bubbly debris within the right sphenoid sinus. Mastoid air cells: Visualized mastoids are normal. No mastoid effusion. Nasal cavity: Slight leftward deviation of the nasal septum. Soft tissues: Unremarkable. IMPRESSION: 1. No large vessel occlusion. 2. Unremarkable CT head. 3. Bubbly debris within the right sphenoid sinus. PROCEDURE INFORMATION: Exam: CTA Neck Without And With Contrast Exam date and time: 09/02/2025 7:58 AM Age: 29 years old Clinical indication: Other: Rle numbness, saddle anesthesia TECHNIQUE: Imaging protocol: Computed tomographic angiography of the neck without and with contrast. Exam focused on the cervical segments of the vasculature. 3D rendering (Not supervised by radiologist): MIP and/or 3D reconstructed images were created by the technologist. Contrast material: OMNIPAQUE 350; Contrast volume: 80 ml; Contrast route: INTRAVENOUS (IV); COMPARISON: CT CERVICAL SPINE RECONS 09/02/2025 7:58 AM FINDINGS: Right common carotid artery: No stenosis. No dissection or occlusion. Right internal carotid artery: No stenosis of the extracranial segment. No dissection or occlusion. Distal tortuosity. Right external carotid artery: No occlusion or stenosis of the origin. Left common carotid artery: No stenosis. No dissection or occlusion. Left internal carotid artery: No stenosis of the extracranial segment. No dissection or occlusion. Left external carotid artery: No occlusion or stenosis of the origin. Right vertebral artery: No stenosis. No dissection or occlusion. Left vertebral artery: No stenosis. No dissection or occlusion. Thyroid: Diffuse heterogeneous enhancement of the thyroid gland, nonspecific. Soft tissues: Normal. No significant soft tissue swelling. Bones/joints: Reversal of normal cervical lordosis. Trace anterolisthesis of C3 over C4, C4 over C5, and C5 over C6. IMPRESSION: 1. No stenosis or occlusion. 2. There is more tortuosity of the vasculature than would be expected for the patient's age. Connective tissue disorders may be considered in the appropriate clinical setting. 3. Diffuse heterogeneous enhancement of the thyroid gland, nonspecific. If further evaluation is desired, recommend correlation with thyroid function tests. REFERENCES: NASCET CRITERIA. The degree of stenosis in the cervical segment of the internal carotid artery is based on NASCET criteria. Normal is no stenosis. Mild is less than 50% stenosis. Moderate is 50-69% stenosis. Severe is 70% to 99% stenosis. Total occlusion is no detectable patent lumen. Dictated and Authenticated by: Wilian Renteria MD. Orderin Jonathan Wells MD
--- NOTE | 2025-09-02 11:25 | DI.[facility]_ITS ---
PROCEDURE INFORMATION: Exam: CT Cervical Spine With Contrast Exam date and time: 09/02/2025 7:58 AM Age: 29 years old Clinical indication: Other: Rle numbness, saddle anesthesia TECHNIQUE: Imaging protocol: Computed tomography of the cervical spine with contrast. COMPARISON: CT BRAIN NECK CTA 09/02/2025 7:58 AM FINDINGS: Bones: Reversal of normal cervical lordosis. Trace anterolisthesis of C3 over C4, C4 over C5, and C5 over C6. This may reflect underlying ligamentous laxity. No fracture. Lungs: Lung apices are normal. Esophagus: Scattered air in the esophagus, possibly from reflux. Thyroid: Diffuse heterogeneous enhancement of the thyroid gland, nonspecific. Soft tissues: Unremarkable. IMPRESSION: 1. No acute traumatic process of the cervical spine. 2. Diffuse heterogeneous enhancement of the thyroid gland, nonspecific. If further evaluation is desired, recommend correlation with thyroid function tests. 3. Trace anterolisthesis of C3 over C4, C4 over C5, and C5 over C6. This may reflect underlying ligamentous laxity in the appropriate clinical setting. Dictated and Authenticated by: Wilian Renteria MD. Orderin Jonathan Wells MD
--- NOTE | 2025-09-02 11:25 | DI.[facility]AD_ITS ---
PROCEDURE INFORMATION: Exam: CT Thoracic Spine Without Contrast Exam date and time: 09/02/2025 7:55 AM Age: 29 years old Clinical indication: Other: Rle numbness, saddle anesthesia TECHNIQUE: Imaging protocol: Computed tomography of the thoracic spine without contrast. COMPARISON: US ABDOMEN LIMITED 08/12/2023 1:42 PM FINDINGS: Bones/joints: Scattered endplate Schmorl's nodes are present. No fracture. Soft tissues: Unremarkable. Esophagus: Scattered air in the esophagus, possibly from reflux. Lungs: Partial bibasilar atelectasis. IMPRESSION: No acute process of the thoracic spine. Dictated and Authenticated by: Wilian Renteria MD. Orderin Jonathan Wells MD
--- NOTE | 2025-09-02 11:25 | DI.[facility]_ITS ---
PROCEDURE INFORMATION: Exam: CT Lumbar Spine With Contrast Exam date and time: 09/02/2025 7:58 AM Age: 29 years old Clinical indication: Other: Rle numbness, saddle anesthesia TECHNIQUE: Imaging protocol: Computed tomography of the lumbar spine with contrast. COMPARISON: CT THORACIC SPINE WO 09/02/2025 7:55 AM FINDINGS: Bones/joints: Vacuum phenomenon of the SI joints. Sclerosis around the bilateral SI joints. No fracture. Soft tissues: Unremarkable. IMPRESSION: No acute process of the lumbar spine. Dictated and Authenticated by: Wilian Renteria MD. Orderin John Negrete MD
--- NOTE | 2025-09-02 11:29 | DI.VRAD_ITS ---
PROCEDURE INFORMATION: Exam: CT Abdomen And Pelvis With Contrast Exam date and time: 09/02/2025 7:58 AM Age: 29 years old Clinical indication: Other: Rle numbness, saddle anesthesia TECHNIQUE: Imaging protocol: Computed tomography of the abdomen and pelvis with contrast. Contrast material: OMNIPAQUE 350; Contrast volume: 80 ml; Contrast route: INTRAVENOUS (IV); COMPARISON: CT THORACIC SPINE WO 09/02/2025 7:55 AM FINDINGS: Tubes, catheters and devices: Clips in the right upper quadrant. Lungs: Partial bibasilar atelectasis. Liver: Normal. No mass. Gallbladder and biliary ducts: Normal. No calcified stones. No ductal dilation. Pancreas: Normal. No ductal dilation. Spleen: Normal. No splenomegaly. Adrenal glands: Normal. No mass. Kidneys and ureters: Bilateral extrarenal pelves. Stomach and bowel: Unremarkable. No obstruction. No mucosal thickening. Appendix: No evidence of appendicitis. Intraperitoneal space: Unremarkable. No free air. No significant fluid collection. Vasculature: Unremarkable. No abdominal aortic aneurysm. Lymph nodes: Unremarkable. No enlarged lymph nodes. Urinary bladder: Unremarkable as visualized. Reproductive: Unremarkable as visualized. Bones/joints: Unremarkable. No acute fracture. Soft tissues: Small fat containing paraumbilical hernia. IMPRESSION: No acute process. Dictated and Authenticated by: Wilian Renteria MD. Orderin John Negrete MD
[2025-09-02 12:18] VITALS: BP 148/95; PULSE 99; RESP 10; O2SAT 100
== END 2025-09-02 12:19 | disposition home or self-care (01) ==
PROVIDERS: Student in an Organized Health Care Education/Training Program; Emergency Provider General Practice
DX: R20.0 Anesthesia of skin (principal)
CPT/HCPCS: 36415; 70496; 70498; 72125; 80053; 81025; 85652; 96374; 99291; 72128; 74177; 81003; 81015; 83735; 84702; 85025; 86140; J1100; J3490

== ENCOUNTER 2025-09-03 12:02 | Emergency (ER) | payer BC, SELFPAY ==
--- NOTE | 2025-09-03 08:25 | DI.MRI_ITS ---
Exam(s) MR CERVICAL SPINE WO/W EXAM: MR CERVICAL SPINE WO/W CLINICAL HISTORY: Saddle anesthesia, concern for MS TECHNIQUE: Multiplanar multisequence MRI of the cervical spine was performed. CONTRAST MATERIAL: IV Contrast: 20 ML of Dotarem contrast administered. COMPARISON: CT CT BRAIN NECK CTA from 09/02/[address] CERVICAL SPINE RECONS from 09/02/2025 FINDINGS: The examination is limited due to patient motion artifact. BONES: Vertebral body heights are maintained. Intervertebral disc spaces are normal. Alignment is normal. Bone marrow signal intensity is within normal limits. CERVICAL CORD: Craniovertebral junction is unremarkable. The cervical cord is normal size and signal intensity. No lesion is present. SOFT TISSUES: Unremarkable. ENHANCEMENT: No suspicious enhancement identified. C2-3: No disc herniation or bulge is identified. No significant central spinal canal or neural foraminal stenosis. C3-4: No disc herniation or bulge is identified. No significant central spinal canal or neural foraminal stenosis C4-5: No disc herniation or bulge is identified. No significant central spinal canal or neural foraminal stenosis C5-6: No disc herniation or bulge is identified. No significant central spinal canal or neural foraminal stenosis C6-7: No disc herniation or bulge is identified. No significant central spinal canal or neural foraminal stenosis C7-T1: No disc herniation or bulge is identified. No significant central spinal canal or neural foraminal stenosis IMPRESSION: 1. There is no focal disc herniation, central spinal canal or neural foraminal stenosis. 2. There is normal signal in the spinal cord. No spinal cord lesion or abnormal enhancement is seen. DATA REPOSITORY:
--- NOTE | 2025-09-03 08:25 | DI.MRI_ITS ---
Exam(s) MR THORACIC SPINE WO/W EXAM: MR THORACIC SPINE WO/W CLINICAL HISTORY: Saddle anesthesia, concern for MS. TECHNIQUE: Multiplanar multisequence MRI of the Thoracic spine was performed. CONTRAST MATERIAL: IV Contrast: 20 mL of Dotarem contrast administered. COMPARISON: CT CT THORACIC SPINE WO from 09/02/2025 FINDINGS: The examination is limited due to patient motion artifact. Bones: The vertebral body heights are well maintained. Alignment is satisfactory. The signal characteristics are unremarkable. Cord: The thoracic cord is normal size and signal intensity. No intrinsic cord lesion is present. Discs: No disc herniation or bulge is present. Soft tissues: Normal. Within the limits of the examination, there is no evidence of enhancement in the spinal cord. No masses or enhancing lesions are present. IMPRESSION: 1. There is no focal disc herniation, central spinal canal or neural foraminal stenosis. 2. There is normal signal in the spinal cord. No spinal lesions or abnormal enhancement is seen in the spinal cord. DATA REPOSITORY:
--- NOTE | 2025-09-03 08:25 | DI.MRI_ITS ---
Exam(s) MR BRAIN WO/W EXAM: MR BRAIN WO/W CLINICAL HISTORY: Saddle anesthesia, concern for MS TECHNIQUE: Multiplanar multisequence MRI of the brain was performed. CONTRAST MATERIAL: IV Contrast: 20 mL of Dotarem contrast administered. COMPARISON: CT CT BRAIN NECK CTA from 09/02/2025 FINDINGS: The examination is limited due to patient motion artifact. VENTRICLES AND EXTRA AXIAL SPACES: Normal in size and morphology for the patient's age. HEMORRHAGE: None. CEREBRAL PARENCHYMA: No focus of restricted diffusion to suggest acute infarct. No space-occupying lesion identified. There are few white matter lesions seen on the T2 and FLAIR images which are hyperintense and perpendicularly oriented to the lateral ventricles. The largest is adjacent to the anterior aspect of the right lateral ventricle and measures 1.2 x 1.2 cm. The next largest 1 measures 0.6 x 0.7 cm and shows faint enhancement the postcontrast images. (Series [id number], image 17). MIDLINE SHIFT: None. BRAINSTEM/CEREBELLUM: Normal. CALVARIUM: Normal. ENHANCEMENT: No suspicious enhancement identified. VISUALIZED PARANASAL SINUSES/MASTOIDS: There is a mucous retention cyst in the left maxillary sinus. There is mild mucosal thickening in the right sphenoid sinus. TONTO APACHE OF ONOFRE: Normal flow void. PITUITARY GLAND: Unremarkable. OTHER FINDINGS: IMPRESSION: Periventricular white matter lesions seen on the T2 and FLAIR images. There is faint enhancement of 1 of the lesions following contrast administration. Findings are most suspicious for demyelinating process such as MS. DATA REPOSITORY:
--- NOTE | 2025-09-03 08:25 | DI.MRI_ITS ---
Exam(s) MR LUMBAR SPINE WO/W EXAM: MR LUMBAR SPINE WO/W CLINICAL HISTORY: Saddle anesthesia, concern for MS. TECHNIQUE: Multiplanar multisequence MRI of the Lumbar Spine was performed. CONTRAST MATERIAL: IV Contrast: 20 mL of Dotarem contrast administered. COMPARISON: CT CT LUMBAR SPINE RECONS from 09/02/[address] THORACIC SPINE WO from 09/02/2025 MR MR CERVICAL SPINE WO/W from 09/03/2025 FINDINGS: The examination is limited due to patient motion artifact. Bones: The last intervertebral disc space is designated the L5/S1 level for the numbering purpose of this examination. The vertebral body heights are well maintained. Alignment is satisfactory. The signal characteristics are unremarkable. Cord: The conus tip ends at the T12 level. It is of normal size and signal intensity. T12-L1: No disc herniations or bulges are present. No central spinal canal or neural foraminal stenosis. L1-2: No disc herniations or bulges are present. No central spinal canal or neural foraminal stenosis. L2-3: No disc herniations or bulges are present. No central spinal canal or neural foraminal stenosis. L3-4: No disc herniations or bulges are present. No central spinal canal or neural foraminal stenosis. L4-5: No disc herniations or bulges are present. No central spinal canal or neural foraminal stenosis. L5-S1: No disc herniations or bulges are present. No central spinal canal or neural foraminal stenosis. Soft tissues: The visualized SI joints and sacrum are well maintained. The paraspinal soft tissues are unremarkable. There is no evidence of suspicious enhancement. IMPRESSION: 1. There is no focal disc herniation, central spinal canal or neural foraminal stenosis in the lumbar spine. 2. The visualized terminal cord is unremarkable. No abnormal enhancement is seen. DATA REPOSITORY:
[2025-09-03 12:19] VITALS: BP 132/82; PULSE 100; RESP 18; TEMP 36.6; O2SAT 97
[2025-09-03] MEDS: Gadoterate meglumine 20 ML SYRINGE IVP (16:04)
--- NOTE | 2025-09-03 16:23 | W.ED.GENAD ---
Discharge Plan Discharge Details Chief Complaint: GenMedical Clinical Impression: Numbness Primary Care Provider: Richard Vigil ED Provider: Caden Lopez Home Meds and New Rx's Prescriptions: No Action fluticasone propionate [Flonase Allergy Relief] 50 mcg/actuation spray,suspension 2 spray intranasal DAILY Qty: 16 12RF Rx Instructions: administer into each nostril Daily Probiotic (4 Strains) 11 billion cell -15 mg capsule 1 cap PO DAILY digestive enzymes Tablet 1 tab PO TID famotidine 20 mg tablet 20 mg PO QHS Qty: 30 1RF Zepbound 5 mg/0.5 mL pen injector 5 mg subcut QWEEK Qty: 2 0RF Zepbound 7.5 mg/0.5 mL pen injector 7.5 mg subcut QWEEK Qty: 2 0RF Zepbound 10 mg/0.5 mL pen injector 10 mg subcut QWEEK Qty: 2 0RF Zepbound 12.5 mg/0.5 mL pen injector 12.5 mg subcut QWEEK Qty: 2 0RF Zepbound 15 mg/0.5 mL pen injector 15 mg subcut QWEEK Qty: 2 6RF ondansetron 8 mg tablet,disintegrating 8 mg PO Q8H PRN (Reason: nausea and vomiting) Qty: 30 5RF albuterol sulfate 90 mcg/actuation HFA aerosol inhaler 2 puff inhalation Q6H PRN (Reason: shortness of breath or wheezing) Qty: 6.7 0RF (DME) Aerochamber MV Spacer See Rx Instructions .Route Qty: 10 0RF Rx Instructions: As directed Zepbound 2.5 mg/0.5 mL pen injector 2.5 mg subcut QWEEK Qty: 2 1RF Rx Instructions: for 4 weeks multivitamin [Daily Vitamin] 1 EACH tablet 1 ea PO DAILY Nexplanon 68 MG implant 68 mg SQ ONCE Qty: 1 0RF HPI General Date/Time Provider Initiated Documentation: 09/03/25 12:11. HPI Narrative: MDM/Narrative: 29-year-old female Fidelia presents to the emergency department for progressive numbness of the saddle region and now bilateral lower extremities predominantly in the feet. Vital signs within normal limits except for mild tachycardia at 100 bpm. In the interval, the patient was assessed at [facility] and underwent MRI of the lumbar spine without contrast to rule out cauda equina given her saddle anesthesia. While this was negative, patient's symptoms and my opinion are more consistent with a demyelinating disease such as multiple sclerosis. As such patient would likely benefit from a workup including MRI of the brain and spine with and without contrast. Will plan to obtain these images after discussing with our radiology department this morning, we will plan to then obtain teleneuro consult to determine best plan of follow-up for patient based on the results of the imaging studies. Given recent lab work which was unrevealing, and no significant changes in history to suggest infectious or metabolic cause of the patient's symptoms I do not believe blood work will be indicated at this time. ED course: IV line was placed, MRI consent form completed. Patient will be sent to radio G department to undergo imaging. [id number] Saint Ansari, who will assume care of patient pending following up MRI results/teleneuro recommendations to determine disposition/follow-up for the patient Clinical impression: Concern for demyelinating disease Numbness Disposition: Pending at time of signout HPI: 29-year-old female Fidelia presents to the emergency department for worsening lower extremity numbness. Patient was evaluated yesterday for saddle anesthesia, was unable to undergo MRI testing at that time and decided to return to the ER today as MRI would be available. In the interim she was seen at [facility], underwent MRI of the L-spine to rule out cauda equina which was negative. Since her visit yesterday she notes that she her left foot as well as her right foot is now numb and she notes some difficulty with proprioception while walking although she denies any weakness. She notes persistent numbness in the saddle region. Denies any other new symptoms such as headache, change in vision, changes in speech or any other concerning symptoms. ROS: Negative besides as mentioned above Exam: Gen: A&O NAD HEENT: NCAT, EOMI, not icteric. External ears normal. No rhinorrhea. Moist mucous membranes. Neck: Supple, full range of motion, no observable masses, No meningeal sign. Lungs: No Respiratory distress. CV: RRR, no edema. Abdomen: Soft, nondistended, No rebound tenderness. MSK: No joint swelling, no redness. Skin: No rashes, petechiae, lesions. Normal color per patient. Neuro: Normal Gait, Grossly intact. Reported decrease sensation throughout the dorsum and solar aspects of the bilateral feet sensation intact bilaterally from the tib-fib regions proximally to the thighs, reported saddle anesthesia to light touch. Psych: Appropriate for situation. Radiology: MRI brain, C-spine, T-spine, L-spine with and without contrast: Pending at this time Related Data Home Medications ?Medication ?Instructions ?Recorded ?Confirmed multivitamin (Daily Vitamin tablet) 1 ea PO DAILY 06/07/15 09/03/25 etonogestrel 68 mg subdermal 68 mg SQ ONCE #1 implant 11/16/17 09/03/25 implant (Nexplanon) L.paracasei,rhamnosus-B.animalis 1 cap PO DAILY 06/05/24 09/03/25 11 billion cell-vit C 15 mg capsule (Daily Probiotic (4 Strains)) digestive enzymes 1 tab PO TID 06/05/24 09/03/25 albuterol sulfate 90 mcg/actuation 2 puff inhalation Q6H PRN 07/03/24 09/03/25 aerosol inhaler shortness of breath or wheezing #6.7 grams inhalational spacing device #10 ea 07/03/24 09/02/25 (Aerochamber MV spacer) famotidine 20 mg tablet 20 mg PO QHS #30 tabs 07/12/25 09/03/25 ondansetron 8 mg disintegrating 8 mg PO Q8H PRN nausea and 07/12/25 09/03/25 tablet vomiting #30 tabs tirzepatide (weight loss) 10 10 mg (0.5 mL) subcut QWEEK #2 mL 07/12/25 09/03/25 mg/0.5 mL subcutaneous pen injector (Zepbound) Held on 08/15/25. Instructions: Changed by Provider tirzepatide (weight loss) 12.5 12.5 mg (0.5 mL) subcut QWEEK #2 mL 07/12/25 10/20/25 mg/0.5 mL subcutaneous pen injector (Zepbound) Held on 08/15/25. Instructions: Changed by Provider tirzepatide (weight loss) 15 15 mg (0.5 mL) subcut QWEEK #2 mL 07/12/25 10/25 mg/0.5 mL subcutaneous pen injector (Zepbound) Held on 08/15/25. Instructions: Changed by Provider tirzepatide (weight loss) 5 mg/0.5 5 mg (0.5 mL) subcut QWEEK #2 mL 07/12/25 10//25 mL subcutaneous pen injector (Zepbound) Held on 08/15/25. Instructions: Changed by Provider tirzepatide (weight loss) 7.5 7.5 mg (0.5 mL) subcut QWEEK #2 mL 07/12/25 10/25 mg/0.5 mL subcutaneous pen injector (Zepbound) Held on 08/15/25. Instructions: Changed by Provider fluticasone propionate 50 2 spray intranasal DAILY #16 grams 07/18/25 09/03/25 mcg/actuation nasal spray,suspension (Flonase Allergy Relief) tirzepatide (weight loss) 2.5 2.5 mg (0.5 mL) subcut QWEEK #2 mL 08/15/25 10//25 mg/0.5 mL subcutaneous pen injector (Zepbound) Previous Rx's ?Medication ?Instructions ?Recorded etonogestrel 68 mg subdermal 68 mg SQ ONCE #1 implant 11/16/17 implant (Nexplanon) albuterol sulfate 90 mcg/actuation 2 puff inhalation Q6H PRN 07/03/24 aerosol inhaler shortness of breath or wheezing #6.7 grams inhalational spacing device #10 ea 07/03/24 (Aerochamber MV spacer) famotidine 20 mg tablet 20 mg PO QHS #30 tabs 07/12/25 ondansetron 8 mg disintegrating 8 mg PO Q8H PRN nausea and 07/12/25 tablet vomiting #30 tabs tirzepatide (weight loss) 10 10 mg (0.5 mL) subcut QWEEK #2 mL 07/12/25 mg/0.5 mL subcutaneous pen injector (Zepbound) Held on 08/15/25. Instructions: Changed by Provider tirzepatide (weight loss) 12.5 12.5 mg (0.5 mL) subcut QWEEK #2 mL 07/12/25 mg/0.5 mL subcutaneous pen injector (Zepbound) Held on 08/15/25. Instructions: Changed by Provider tirzepatide (weight loss) 15 15 mg (0.5 mL) subcut QWEEK #2 mL 07/12/25 mg/0.5 mL subcutaneous pen injector (Zepbound) Held on 08/15/25. Instructions: Changed by Provider tirzepatide (weight loss) 5 mg/0.5 5 mg (0.5 mL) subcut QWEEK #2 mL 07/12/25 mL subcutaneous pen injector (Zepbound) Held on 08/15/25. Instructions: Changed by Provider tirzepatide (weight loss) 7.5 7.5 mg (0.5 mL) subcut QWEEK #2 mL 07/12/25 mg/0.5 mL subcutaneous pen injector (Zepbound) Held on 08/15/25. Instructions: Changed by Provider fluticasone propionate 50 2 spray intranasal DAILY #16 grams 07/18/25 mcg/actuation nasal spray,suspension (Flonase Allergy Relief) tirzepatide (weight loss) 2.5 2.5 mg (0.5 mL) subcut QWEEK #2 mL 08/15/25 mg/0.5 mL subcutaneous pen injector (Zepbound) Allergies Allergy/AdvReac Type Severity Reaction Status Date / Time No Known Allergies Allergy Verified 09/03/25 12:24 General Stated Complaint: GenMedical RAEGAN: 3 Course Vital Signs Vital signs: Vital Signs Temperature 36.6 C 09/03/25 12:19 Pulse 100 H 09/03/25 12:19 Respiratory Rate 18 09/03/25 12:19 Blood Pressure 132/82 09/03/25 12:19 Pulse Oximetry 97 09/03/25 12:19 Temperature 36.6 C 09/03/25 12:19 Pulse 100 H 09/03/25 12:19 Respiratory Rate 18 09/03/25 12:19 Blood Pressure 132/82 09/03/25 12:19 Pulse Oximetry 97 09/03/25 12:19 Pain Level 0 09/03/25 12:19 PFSH All Active Problems Numbness (Acute) Saddle anesthesia (Acute) Serous otitis media (Acute) Wheezing (Acute) Chronic GERD (Acute) Snoring (Acute) NCTY Sleep note 02/15/25 Dyspepsia (Acute) 07/04/24 LR GI note Encounter for removal and reinsertion of Nexplanon (Acute) Obesity (Chronic) Presence of subdermal contraceptive implant (Acute 01/20/21) Removal and replacement 06/08/2024 Medical History BMI 40.0-44.9, adult Surgical History S/P cholecystectomy Hx of wisdom tooth extraction Family History Father Cancer Grandmother Cancer Social History (Updated 07/12/25 @ 16:22 by Karely Salcedo RN) Smoking/Tobacco Use Status: Never Tobacco: How many years used: 0 Smoking risk assessment performed?: Yes Alcohol Intake: never Drug use: Never Substance use type: does not use Adopted: No Caregiver/Support person: No Foster care: No Household members: family Housing: apartment Number of Children: 0 Communication Needs: Corrective Lenses Education Level: college Details: bachelor's degree Do you need help understanding health information?: Never current occupation: [employer]) Sexually active: No Do you think of yourself as: straight/heterosexual Current gender identity: female What is your relationship status?: living with partner How often do you talk on the phone with friends or family?: once per week How often do you attend catholic or yarsanism services?: decline to answer Do you belong to any clubs or organized social groups?: no Panel score (0-1 are the most socially isolated patients): 1 What type of physical activity do you participate in: walking and other Details: gym, boot camp once a week Duration: 60-90 minutes/day Frequency: 5-6 times per week Vida/Sikh: None Special vida needs: No Seatbelt use: always Helmet use: Yes Drive intox or ride w/intox school bus driver/mechanic: No Working smoke detector in home: Yes Do you feel safe at home: Yes Do you feel safe in your relationship?: Yes Female Reproductive History Menstrual control method: implanted History History 0 Para Hx # Term Pregnancies Multiple births Hx # Pregnancies Ectopic pregnancies AB induced Hx Number of Living Children AB spontaneous
[2025-09-03 17:06] VITALS: BP 128/65; PULSE 97; TEMP 34.8; O2SAT 95
--- NOTE | 2025-09-03 17:47 | NUR.NOTE ---
Nursing Note:persisting numbness to bilat feet, and groin area for 2 days,
[2025-09-03 17:49] VITALS: BP 135/81; PULSE 98; RESP 16; O2SAT 100
[2025-09-03 17:52] VITALS: TEMP 37
[2025-09-03] MEDS: methylPREDNISolone SUCC 125 MG VIAL 1000 MG IVP (18:47)
[2025-09-03] MEDS: Cholecalciferol (Vitamin D3) 1,000 UNIT TAB 1000 UNITS PO (18:49)
[2025-09-03] MEDS: Normal Saline 100 ML 116 ML (18:49)
--- NOTE | 2025-09-03 19:08 | ED.FU.B_ITS ---
Date of service: 09/03/25 Time of Service: 17:00 Follow Up Plan: In brief, this is a 29-year-old female patient presenting for evaluation of saddle anesthesia and bilateral lower extremity numbness, with an MRI that is concerning for demyelinating disease/MS. At the time that I took over the patient's care, her disposition was pending completion of the teleneurology evaluation. Dr. Mota with teleneurology evaluated the patient, is concern for MS with a potential conus lesion as the cause of her symptoms today. She reassuringly at this time does not have any motor symptoms or incontinence. However, he recommends transfer to a neurology capable facility. He recommends 1000 mg of methylprednisolone for high-dose steroid therapy, as well as a dose of vitamin D. I reached out to [facility] to discuss transfer, as the patient will require lumbar puncture and specialized studies for demyelinating disease workup and further management by those specialists. The patient was accepted by Dr. Zurita and will be transported to their facility by ambulance. Remained hemodynamically appropriate while under my care and left our facility without incident. Simona Conte MD
== END 2025-09-03 22:00 | disposition short-term general hospital (02) ==
PROVIDERS: Emergency Provider Emergency Medicine
DX: R20.0 Anesthesia of skin (principal); G35.D Multiple sclerosis, unspecified
CPT/HCPCS: 99285 ×2; 96374; 96375; 70553; 72158; 72156; 72157; J2919

== ENCOUNTER 2025-09-24 16:21 | Outpatient (REF) | payer BC, SELFPAY ==
[2025-09-24 21:20] LABS: Hemoglobin A1C 5.2 % (<5.7)
[2025-09-24 21:29] LABS: Cholesterol 150 mg/dL (<200); HDL Cholesterol 34 mg/dL (>or=50)
[2025-09-25 18:54] LABS: HIV-1/2 Ag & Ab Screen Negative (Negative)
[2025-09-25 18:55] LABS: Hepatitis C Ab w Rflx HCV PCR Negative (Negative)
== END 2025-09-24 16:22 | disposition home or self-care (01) ==
LOC: NCHCN 16:21
PROVIDERS: Visit Provider Nurse Practitioner Family
DX: Z13.1 Encounter for screening for diabetes mellitus (principal); Z11.59 Encounter for screening for other viral diseases; Z13.220 Encounter for screening for lipoid disorders; Z11.4 Encounter for screening for human immunodeficiency virus [HIV]
CPT/HCPCS: 80061; 86803; 87389; 83036